=== PATIENT | female | born 1985 | race Two or more races ===

== ENCOUNTER 2017-10-05 13:06 | Emergency (ER) | payer OTHER, BC ==
[2017-10-05 13:15] VITALS: BP 137/83; PULSE 74; TEMP 97.9; BMI 28.5
[2017-10-05] MEDS ORDERED: MAG HYDROX/AL HYDROX/SIMETH 30 ML UNIT-DOSE CUP PO ONE (14:10)
[2017-10-05] MEDS ORDERED: ACETAMINOPHEN 1000 MG/100 ML VIAL (NON FORMULARY) IVPB ONE (14:23)
--- NOTE | 2017-10-05 14:36 | PDOC ---
History of Present Illness - General Chief Complaint: Pain Stated Complaint: ABD PAIN (PCP SENT) Time Seen by Provider: 10/05/17 13:50 - History of Present Illness Initial Comments: 10/05/17 14:34 Chief complaint: Right upper quadrant pain History of present illness: 31 years old significant past medical history presents emergency department with one-year history of intermittent right upper quadrant pain sometimes associated with meals. Patient had sought evaluation in the emergency department and was diagnosed with a gallstone. Symptoms are mild to moderate intermittent lasting half hour to an hour each time no associated fever or vomiting. Patient has not sought GI follow-up Past History - Past Medical History Allergies/Adverse Reactions: Allergies Allergy/AdvReac Type Severity Reaction Status Date / Time No Known Allergies Allergy Verified 10/05/17 13:12 Home Medications: Ambulatory Orders Docusate Sodium [Colace -] 100 mg PO BID #14 capsule 10/05/17 Ondansetron [Zofran *Odt*] 8 mg SL BID PRN #20 od.tablet 10/05/17 Oxycodone HCl/Acetaminophen [Percocet 5-325 mg Tablet] 1 tab PO Q6H PRN #12 tablet MDD 4 10/05/17 Cardiac Disorders: Yes (tachycardia) COPD: No - Suicide/Smoking/Psychosocial Hx Smoking Status: No Smoking History: Never smoked Number of Cigarettes Smoked Daily: 0 Information on smoking cessation initiated: No Hx Alcohol Use: No Drug/Substance Use Hx: No Substance Use Type: None Review of Systems - Review of Systems Comments:: 10/05/17 14:35 ROS: A complete review of 10 out of 10 review of systems is taken and is negative apart from what is previously mentioned below and in the HPI. *Physical Exam - Vital Signs Last Vital Signs Temp Pulse Resp BP Pulse Ox 97.9 F 74 18 137/83 100 10/05/17 13:12 10/05/17 13:12 10/05/17 13:12 10/05/17 13:12 10/05/17 13:12 - Physical Exam Comments: 10/05/17 14:35 Vitals: Triage Vital signs reviewed General Appearance: no acute distress, well nourished well developed, Head: Atraumatic, Eyes: Pupils equal reactive round, extraocular movement intact Cardiac: Regular rate and rhythym, no murmurs, no rubs, no gallops, Lungs: Clear to auscultation bilateral, good air movement bilaterally, Abdomen: Soft, non distended, normal bowel sounds, right upper quadrant tenderness to palpation Extremities: Full range of motion to all extremities, no cyanosis, clubbing, or edema Skin: Warm and dry, no rashes or lesions, no rash, no petechiae Psych: normal mood, normal affect ED Treatment Course - LABORATORY CBC & Chemistry Diagram: 10/05/17 15:36 10/05/17 15:36 - RADIOLOGY Radiology Studies Ordered: Category Date Time Status ABDOMEN US -LIMITED [US] Stat Ultrasound 10/05/17 14:08 Ordered Medical Decision Making - Medical Decision Making 10/05/17 17:02 Right upper quadrant pain we'll check labs ultrasound observe and reassess Dr. Rodriguez to follow up U/S reports and reasses *DC/Admit/Observation/Transfer Diagnosis at time of Disposition: Hyperglycemia Cholelithiasis Qualifiers: Cholelithiasis location: gallbladder Cholecystitis presence: without cholecystitis Biliary obstruction: without biliary obstruction Qualified Code(s) : K80.20 - Calculus of gallbladder without cholecystitis without obstruction Hyperlipemia Qualifiers: Hyperlipidemia type: unspecified Qualified Code(s): E78.5 - Hyperlipidemia, unspecified - Discharge Dispostion Disposition: HOME Condition at time of disposition: Stable - Prescriptions Prescriptions: Docusate Sodium [Colace -] 100 mg PO BID #14 capsule Ondansetron [Zofran *Odt*] 8 mg SL BID PRN #20 od.tablet PRN Reason: Nausea And/Or Vomiting Oxycodone HCl/Acetaminophen [Percocet 5-325 mg Tablet] 1 tab PO Q6H PRN #12 tablet MDD 4 PRN Reason: Pain Level 7 - 10 - Referrals Referrals: David Gee MD [Primary Care Provider] - - Patient Instructions Printed Discharge Instructions: High Triglycerides, DI for Gallstones, DI for Hyperglycemia -- Adult Additional Instructions: I spoke with Dr David Gee and he would like you to see him in the office this week either Thursday or Thursday Please avoid fatty and fried foods that will make your symptoms worsen Dr Gee has made arrangement for you to see a surgeon about your gallbladder Please coal picker your medications at your pharmacy Your glucose level was elevated in the lab work done today. You should have repeat chemistries done and follow up with your doctor Also your blood was very lipemic and this needs to be address by Dr Gee - Post Discharge Activity Forms/Work/School Notes: Back to Work
[2017-10-05 15:55] LABS: EOS % 2.3 % (0-4.5); HEMATOCRIT 36.8 % (32.4-45.2); HEMOGLOBIN 14.6 GM/dL (10.7-15.3); LYMPH % 27.4 % (8-40); MCH 34.9 pg (25.7-33.7); MCHC 39.6 g/dl (32.0-36.0); MEAN CELL VOLUME 88.3 fl (80-96); MEAN PLT VOLUME 8.6 fl (7.5-11.1); MONO % 5.2 % (3.8-10.2); NEUT % 64.1 % (42.8-82.8); PLATELET COUNT 343 K/MM3 (134-434); RBC 4.17 M/mm3 (3.60-5.2); RDW 12.9 % (11.6-15.6); WHITE BLOOD COUNT 10.6 K/mm3 (4.0-10.0)
[2017-10-05 16:13] LABS: ALBUMIN 3.6 g/dl (3.4-5.0); ANION GAP 5 (8-16); CHLORIDE 104 mmol/L (98-107); CO2 24 mmol/L (21-32); CREATININE 0.6 mg/dL (0.55-1.02); GLUCOSE,RANDOM 175 mg/dL (74-106); SODIUM 133 mmol/L (136-145)
[2017-10-05 16:29] LABS: POTASSIUM 4.3 mmol/L (3.5-5.1)
[2017-10-05] MEDS ORDERED: MAG HYDROX/AL HYDROX/SIMETH 30 ML UNIT-DOSE CUP ONE (16:33)
[2017-10-05 16:42] LABS: URINE APPEARANCE CLEAR; URINE BILIRUBIN NEGATIVE (<2.0 mg/dL); URINE BLOOD 2+ (NEGATIVE); URINE COLOR LTYELLOW; URINE GLUCOSE (UA) NEGATIVE (NEGATIVE); URINE KETONE NEGATIVE (NEGATIVE); URINE LEUK ESTERASE NEGATIVE (NEGATIVE); URINE NITRITE NEGATIVE (NEGATIVE); URINE PROTEIN NEGATIVE (NEGATIVE); URINE UROBILINOGEN NEGATIVE mg/dL (0.2-1.0)
[2017-10-05] MEDS ORDERED: FAMOTIDINE IV 20 MG/12 ML VIAL IVPUSH ONE (16:45)
[2017-10-05] MEDS ORDERED: ACETAMINOPHEN INJECTION 100 ML IVPB ONE (16:45)
[2017-10-05] MEDS ORDERED: FAMOTIDINE 20 MG/50 ML IVPB 20 MG/50 ML MG IVPB ONE (16:45)
[2017-10-05 16:47] LABS: EPI CELLS RARE /HPF (FEW); URINE BACTERIA RARE /hpf (NONE SEEN); URINE MUCUS RARE
--- NOTE | 2017-10-05 18:06 | PDOC ---
*Physical Exam - Vital Signs Last Vital Signs Temp Pulse Resp BP Pulse Ox 97.9 F 74 18 137/83 100 10/05/17 13:12 10/05/17 13:12 10/05/17 13:12 10/05/17 13:12 10/05/17 13:12 ED Treatment Course - LABORATORY CBC & Chemistry Diagram: 10/05/17 15:36 10/05/17 15:36 - ADDITIONAL ORDERS Additional order review: Laboratory Results 10/05/17 10/05/17 10/05/17 16:35 15:52 15:36 Sodium 133 L Potassium 4.3 Chloride 104 Carbon Dioxide 24 Anion Gap 5 L BUN Creatinine 0.6 Creat Clearance w eGFR > 60 Random Glucose 175 H Calcium Total Bilirubin AST ALT Alkaline Phosphatase Total Protein Albumin 3.6 Serum , Qual Urine Color Ltyellow Urine Appearance Clear Urine pH 5.0 Ur Specific Downey 1.027 Urine Protein Negative Urine Glucose (UA) Negative Urine Ketones Negative Urine Blood 2+ H Urine Nitrite Negative Urine Bilirubin Negative Urine Urobilinogen Negative Ur Leukocyte Esterase Negative Urine WBC (Auto) None Urine RBC (Auto) 24 Ur Epithelial Cells Rare Urine Bacteria Rare Urine Mucus Rare Urine HCG, Qual Negative 10/05/17 15:35 Sodium Potassium Chloride Carbon Dioxide Anion Gap BUN Creatinine Creat Clearance w eGFR Random Glucose Calcium Total Bilirubin AST ALT Alkaline Phosphatase Total Protein Albumin Serum , Qual Negative Urine Color Urine Appearance Urine pH Ur Specific Downey Urine Protein Urine Glucose (UA) Urine Ketones Urine Blood Urine Nitrite Urine Bilirubin Urine Urobilinogen Ur Leukocyte Esterase Urine WBC (Auto) Urine RBC (Auto) Ur Epithelial Cells Urine Bacteria Urine Mucus Urine HCG, Qual 10/05/17 15:36 RBC 4.17 MCV 88.3 MCHC 39.6 H RDW 12.9 MPV 8.6 Neutrophils % 64.1 Lymphocytes % 27.4 Monocytes % 5.2 Eosinophils % 2.3 Basophils % 1.0 - Medications Given in the ED: ED Medications Discontinued Medications Generic Name Dose Route Start Last Admin Trade Name Freq PRN Reason Stop Dose Admin Acetaminophen 1,000 mg 10/05/17 14:23 10/05/17 16:49 Ofirmev Injection - IVPB 10/05/17 14:24 1,000 mg ONCE ONE Administration Al Hydroxide/Mg Hydroxide 30 ml 10/05/17 14:10 10/05/17 16:41 Mylanta Oral Suspension - PO 10/05/17 14:11 30 ml ONCE ONE Administration Famotidine 20 mg in 12 mls @ 144 mls/hr 10/05/17 16:45 10/05/17 16:49 Pepcid 20 Mg/12 Ml Push IVPUSH 10/05/17 16:49 144 mls/hr ONCE ONE Administration Medical Decision Making - Medical Decision Making 10/05/17 18:05 blood too lipemic to run her LFTs abd US cholilithiasis but no evidence of cholecytitis 10/05/17 18:29 Speak to her PCP, Dr. David Gee and the plan is for her to follow-up in the office this Thursday. Her PCP is already made appointment with a surgeon to discuss outpatient cholecystectomy Patient will be given prescription for antiemetics and pain meds and she was instructed to avoid fatty or fried foods. I explained to her that she had a 1 cm stone in the neck of her was gallbladder and could have recurrent symptoms *DC/Admit/Observation/Transfer Diagnosis at time of Disposition: Hyperglycemia Cholelithiasis Qualifiers: Cholelithiasis location: gallbladder Cholecystitis presence: without cholecystitis Biliary obstruction: without biliary obstruction Qualified Code(s) : K80.20 - Calculus of gallbladder without cholecystitis without obstruction Hyperlipemia Qualifiers: Hyperlipidemia type: unspecified Qualified Code(s): E78.5 - Hyperlipidemia, unspecified - Discharge Dispostion Disposition: HOME Condition at time of disposition: Stable - Prescriptions Prescriptions: Docusate Sodium [Colace -] 100 mg PO BID #14 capsule Ondansetron [Zofran *Odt*] 8 mg SL BID PRN #20 od.tablet PRN Reason: Nausea And/Or Vomiting Oxycodone HCl/Acetaminophen [Percocet 5-325 mg Tablet] 1 tab PO Q6H PRN #12 tablet MDD 4 PRN Reason: Pain Level 7 - 10 - Referrals Referrals: David Gee MD [Primary Care Provider] - - Patient Instructions Printed Discharge Instructions: High Triglycerides, DI for Gallstones, DI for Hyperglycemia -- Adult Additional Instructions: I spoke with Dr David Gee and he would like you to see him in the office this week either Thursday or Thursday Please avoid fatty and fried foods that will make your symptoms worsen Dr Gee has made arrangement for you to see a surgeon about your gallbladder Please fruit or nut picker your medications at your pharmacy Your glucose level was elevated in the lab work done today. You should have repeat chemistries done and follow up with your doctor Also your blood was very lipemic and this needs to be address by Dr Gee - Post Discharge Activity
[2017-10-05] MEDS ORDERED: FAMOTIDINE IV 20 MG/12 ML VIAL IVPUSH SCH (22:00)
== END 2017-10-05 18:57 | disposition home or self-care (01) ==
LOC: JER 13:06
PROC: 3E033NZ Introduction of Analgesics, Hypnotics, Sedatives into Peripheral Vein, Percutaneous Approach (ICD-10-PCS; principal; 2017-10-05)
PROC: 3E033GC Introduction of Other Therapeutic Substance into Peripheral Vein, Percutaneous Approach (ICD-10-PCS; 2017-10-05)
DX: K80.20 Calculus of gallbladder without cholecystitis without obstruction (principal); R73.9 Hyperglycemia, unspecified
CPT/HCPCS: 36415; 76705-TC; 80053; 81003; 81015; 84703; 85025; 99283-25; J0131

== ENCOUNTER 2017-12-20 02:00 | Inpatient (IN) | payer OTHER, BC ==
--- NOTE | 2017-12-20 02:25 | PDOC ---
History of Present Illness - General History Source: Patient Exam Limitations: No Limitations - History of Present Illness Initial Comments: 12/20/17 04:39 Patient is a 31 year old female with a significant past medical history of who presents to the ED with complaints of right upper quadrant that began this morning. Patient reports eating broccoli rice and pasta at 10 pm before begging to experiencing increased right upper quadrant pain that she states woke her up from sleep, prompting her to come into the ED for further evaluation. She reports getting a ultrasound done earlier in the year, which showed her that she had a gallstone present, advising her to begin eating a low fat diet. Denies chest pain, Sob. Denies nausea, vomiting. Denies contact with sick individuals out of state travelling. Denies fevers, chills. Denies any other symptoms. Allergies: None Social history: Lives with children. No smoking. No alcohol. No illicit drugs. Surgical history: None PMD: Dr. David Gee <Naresh Wilson - Last Filed: 12/20/17 04:39> <Maya Pinedo - Last Filed: 12/20/17 21:32> - General Chief Complaint: Pain, Acute Stated Complaint: STOMACH PAIN Time Seen by Provider: 12/20/17 02:24 Past History <Naresh Wilson - Last Filed: 12/20/17 04:39> - Past Medical History Cardiac Disorders: Yes (tachycardia) COPD: No - Suicide/Smoking/Psychosocial Hx Smoking Status: No Smoking History: Never smoked Have you smoked in the past 12 months: No Number of Cigarettes Smoked Daily: 0 Information on smoking cessation initiated: No Hx Alcohol Use: No Drug/Substance Use Hx: No Substance Use Type: None <Maya Pinedo - Last Filed: 12/20/17 21:32> - Past Medical History Allergies/Adverse Reactions: Allergies Allergy/AdvReac Type Severity Reaction Status Date / Time No Known Allergies Allergy Verified 12/20/17 05:15 Home Medications: Ambulatory Orders NK [No Known Home Medication] 12/20/17 Review of Systems - Review of Systems Able to Perform ROS?: Yes Comments:: 12/20/17 04:39 GENERAL/CONSTITUTIONAL: No fever or chills. No weakness. HEAD, EYES, EARS, NOSE AND THROAT: No change in vision. No ear pain or discharge. No sore throat. CARDIOVASCULAR: No chest pain or shortness of breath. RESPIRATORY: No cough, wheezing, or hemoptysis. GASTROINTESTINAL: No nausea, vomiting, diarrhea or constipation. GENITOURINARY: No dysuria, frequency, or change in urination. MUSCULOSKELETAL: +Right upper quadrant pain. No joint or muscle swelling.. No neck or back pain. SKIN: No rash NEUROLOGIC: No headache, vertigo, loss of consciousness, or change in strength/ sensation. ENDOCRINE: No increased thirst. No abnormal weight change. HEMATOLOGIC/LYMPHATIC: No anemia, easy bleeding, or history of blood clots. ALLERGIC/IMMUNOLOGIC: No hives or skin allergy. <Naresh Wilson - Last Filed: 12/20/17 04:39> *Physical Exam - Vital Signs Last Vital Signs Temp Pulse Resp BP Pulse Ox 98.2 F 77 20 123/84 99 12/20/17 02:22 12/20/17 02:22 12/20/17 02:22 12/20/17 02:22 12/20/17 02:22 - Physical Exam Comments: 12/20/17 04:39 GENERAL: Awake, alert, and fully oriented, in no acute distress HEAD: No signs of trauma EYES: PERRLA, EOMI, sclera anicteric, conjunctiva clear ENT: Auricles normal inspection, hearing grossly normal, nares patent, oropharynx clear without exudates. Moist mucosa NECK: Normal ROM, supple, no lymphadenopathy, JVD, or masses LUNGS: Breath sounds equal, clear to auscultation bilaterally. No wheezes, and no crackles HEART: Regular rate and rhythm, normal S1 and S2, no murmurs, rubs or gallops ABDOMEN: +Right upper quadrant tenderness. Soft, normoactive bowel sounds. No guarding, no rebound. No masses EXTREMITIES: Normal range of motion, no edema. No clubbing or cyanosis. No cords, erythema, or tenderness NEUROLOGICAL: Cranial nerves II through XII grossly intact. Normal speech, normal gait SKIN: Warm, Dry, normal turgor, no rashes or lesions noted. <Naresh Wilson - Last Filed: 12/20/17 04:39> - Vital Signs Last Vital Signs Temp Pulse Resp BP Pulse Ox 98.2 F 77 20 123/84 99 12/20/17 02:22 12/20/17 02:22 12/20/17 02:22 12/20/17 02:22 12/20/17 02:22 <Maya Pinedo - Last Filed: 12/20/17 21:32> ED Treatment Course - LABORATORY CBC & Chemistry Diagram: 12/20/17 05:00 12/20/17 05:00 <Maya Pinedo - Last Filed: 12/20/17 21:32> Medical Decision Making - Medical Decision Making 12/20/17 04:37 Pt comes with RUQ and epigastric pain. States that she has a known GB stone. SHe ate dinner tonight pasta etc at 10PM; she also drank 2 beers. Pain woke her from sleep at midnight, Pt has no fever and she doesnt appear jaundiced. Pt has no PMHx. A1 Pt has no other complaints. 12/20/17 06:51 Pt will go for sono when the department opens this AM. <Maya Pinedo - Last Filed: 12/20/17 21:32> *DC/Admit/Observation/Transfer - Attestations Scribe Attestion: 12/20/17 04:40 Documentation prepared by Naresh Wilson, acting as medical research assistant for Maya Pinedo MD. <Naresh Wilson - Last Filed: 12/20/17 04:39> <Maya Pinedo - Last Filed: 12/20/17 21:32> Diagnosis at time of Disposition: Acute cholecystitis
[2017-12-20] MEDS ORDERED: ACETAMINOPHEN 1000 MG/100 ML VIAL (NON FORMULARY) IVPB ONE ×2 (03:51→14:31)
[2017-12-20] MEDS ORDERED: ACETAMINOPHEN INJECTION 100 ML IVPB ONE ×2 (04:56→14:34)
[2017-12-20 05:21] LABS: BASO % 0.4 % (0-2.0); EOS % 1.8 % (0-4.5); HEMATOCRIT 37.8 % (32.4-45.2); HEMOGLOBIN 12.5 GM/dL (10.7-15.3); LYMPH % 16.3 % (8-40); MCH 29.2 pg (25.7-33.7); MEAN CELL VOLUME 88.4 fl (80-96); MEAN PLT VOLUME 8.4 fl (7.5-11.1); MONO % 5.3 % (3.8-10.2); NEUT % 76.2 % (42.8-82.8); PLATELET COUNT 294 K/MM3 (134-434); RBC 4.28 M/mm3 (3.60-5.2); RDW 13.2 % (11.6-15.6); WHITE BLOOD COUNT 11.5 K/mm3 (4.0-10.0)
[2017-12-20 05:46] LABS: ALBUMIN 3.7 g/dl (3.4-5.0); ALK PHOS 57 U/L (45-117); AMYLASE 82 U/L (25-115); ANION GAP 10 (8-16); BILIRUBIN,TOTAL 0.2 mg/dL (0.2-1.0); BLOOD UREA NITROGEN 9 mg/dL (7-18); CALCIUM 8.8 mg/dL (8.5-10.1); CHLORIDE 106 mmol/L (98-107); CO2 23 mmol/L (21-32); CREATININE 0.7 mg/dL (0.55-1.02); GLUCOSE,RANDOM 112 mg/dL (74-106); LIPASE 126 U/L (73-393); POTASSIUM 4.5 mmol/L (3.5-5.1); SGOT/AST 40 U/L (15-37); SGPT/ALT 82 U/L (12-78); SODIUM 139 mmol/L (136-145); TOT PROT 7.1 g/dl (6.4-8.2)
--- NOTE | 2017-12-20 07:26 | PDOC ---
*Physical Exam - Vital Signs Last Vital Signs Temp Pulse Resp BP Pulse Ox 98.2 F 77 20 123/84 99 12/20/17 02:22 12/20/17 02:22 12/20/17 02:22 12/20/17 02:22 12/20/17 02:22 - Physical Exam Comments: 12/20/17 07:23 GENERAL: Awake, alert, and fully oriented, in no acute distress HEAD: No signs of trauma, normocephalic, atraumatic EYES: PERRLA, EOMI, sclera anicteric, conjunctiva clear ENT: Hearing grossly normal, nares patent, oropharynx clear without exudates. Moist mucosa NECK: Normal ROM, supple, no lymphadenopathy, JVD, or masses LUNGS: No distress, speaks full sentences, clear to auscultation bilaterally HEART: Regular rate and rhythm, normal S1 and S2, no murmurs, rubs or gallops, peripheral pulses normal and equal bilaterally. ABDOMEN: Soft, + RUQ ttp, nontender, normoactive bowel sounds. No guarding, no rebound. No masses EXTREMITIES : Normal inspection, Normal range of motion, no edema. No clubbing or cyanosis. SKIN: Warm, Dry, normal turgor, no rashes or lesions noted ED Treatment Course - LABORATORY CBC & Chemistry Diagram: 12/20/17 05:00 12/20/17 05:00 - ADDITIONAL ORDERS Additional order review: Laboratory Results 12/20/17 05:00 Sodium 139 Potassium 4.5 Chloride 106 Carbon Dioxide 23 Anion Gap 10 BUN 9 Creatinine 0.7 Creat Clearance w eGFR > 60 Random Glucose 112 H Calcium 8.8 Total Bilirubin 0.2 AST 40 H ALT 82 H Alkaline Phosphatase 57 Total Protein 7.1 Albumin 3.7 Total Amylase 82 Lipase 126 12/20/17 05:00 RBC 4.28 MCV 88.4 MCHC 33.0 RDW 13.2 MPV 8.4 Neutrophils % 76.2 Lymphocytes % 16.3 D Monocytes % 5.3 Eosinophils % 1.8 Basophils % 0.4 - Medications Given in the ED: ED Medications Discontinued Medications Generic Name Dose Route Start Last Admin Trade Name Freq PRN Reason Stop Dose Admin Acetaminophen 1,000 mg 12/20/17 03:51 12/20/17 05:00 Ofirmev Injection - IVPB 12/20/17 03:52 1,000 mg ONCE ONE Administration Medical Decision Making - Medical Decision Making 12/20/17 07:23 31 yo F with h/o cholelithiasis who p/w abdominal pain. Received signout from night team/Dr. Pinedo. Patient VSS, AF. AST/ALT 40/82, WBC 11.5. Pending RUQ U/S. R/o choleycystitis. ED Course: UA: 1+ Blood, 14 RBC Urine Preg: Neg RUQ U/S 12/20/17 10:01 RUQ U/S: Mild fatty infiltration of liver. Cholelithiasis with mild GB wall thickening 0.39. SIN sign seen by attending in ED. Early choleycysitits. 12/20/17 10:17 Attempted to call Surgery rn utilization management um Dr. Castanon at numbers provided [phone], [phone] , . Left message on answering machine. Attempted to call Radiologist who read report ( Martin Reyes ) [phone], [phone] x 2. 12/20/17 10:[address] David Boothe answering service. 12/20/17 10:[address] Boothe if surgery wants to manage with IV antibiotics, and, surgery, then patient to be admitted. 12/20/17 11:27 [facility] fish boning machine feeder contacted [phone]. Dr. Henderson accepts patient. Per. Dr. Boothe admit patient to surgery Dr. Henderson. *DC/Admit/Observation/Transfer Diagnosis at time of Disposition: Acute cholecystitis - Discharge Dispostion Decision to Admit order: Yes - Referrals Referrals: David Gee MD [Primary Care Provider] - Harjinder Bloom MD [Staff Physician] - - Patient Instructions Printed Discharge Instructions: DI for Gallstones Additional Instructions: Please return to the emergency department with any new or worsening symptoms or concerns. Please follow up with your primary care physician within 72 hours. Please follow up with general surgery within one week. - Post Discharge Activity - Attestations Physician Attestion: 12/20/17 07:25 I attest to the information provided in this note.
[2017-12-20 08:12] LABS: URINE APPEARANCE CLEAR; URINE BILIRUBIN NEGATIVE (<2.0 mg/dL); URINE COLOR YELLOW; URINE GLUCOSE (UA) NEGATIVE (NEGATIVE); URINE KETONE NEGATIVE (NEGATIVE); URINE LEUK ESTERASE NEGATIVE (NEGATIVE); URINE NITRITE NEGATIVE (NEGATIVE); URINE PROTEIN NEGATIVE (NEGATIVE); URINE UROBILINOGEN NEGATIVE mg/dL (0.2-1.0)
[2017-12-20 08:31] LABS: EPI CELLS FEW /HPF (FEW); URINE MUCUS RARE
[2017-12-20] MEDS ORDERED: ONDANSETRON 4 MG/2 ML VIAL IVPB ONE (10:25)
[2017-12-20] MEDS ORDERED: PIPERACILLIN/TAZOB 4.5 GM 4.5 GM in DEXTROSE 5%-WATER 100 ML IVPB ONE (10:28)
[2017-12-20] MEDS ORDERED: SODIUM CHLORIDE 1,000 ML IV STA (11:34)
[2017-12-20] MEDS ORDERED: PIPERACILLIN/TAZOB 4.5 GM 4.5 GM/100 ML BAG IVPB ONE ×2 (11:52)
[2017-12-20] MEDS ORDERED: ONDANSETRON 4 MG/2 ML VIAL ONE ×2 (11:52→11:57)
--- NOTE | 2017-12-20 14:45 | HP ---
Admitting History and Physical - Primary Care Physician PCP: David Gee S - Admission Chief Complaint: RUQ/epigastric pain, n/v History of Present Illness: 31yo F with h/o hypertriglyceridemia (was on Vascepa ~1.5 months, but repeat labs showed normal level), tachycardia (was seen here about 7 yrs ago but did not require intervention), known cholelithiasis from ER visit end of September (had seen Dr. Bloom in office to discuss possible cholecystectomy but had not pursued yet), presented to ER with recurrence of RUQ/epigastric pain starting several days ago, which initially resolved but returned overnight about midnight, associated with N/V, so she came to ER. Last po was dinner last night ([place], shrimp with noodles). She had been on a no-fat diet for her triglycerides for a while, but has recently not been so good about following low-fat diet. The pain has subsided a bit in the ER, after IV Tylenol and fluids, but is starting to come back. She is afebrile, with wbc 11.5, LFTs normal except very slightly elevated AST/ ALT, normal lipase. US shows 1.6cm stone in neck of gallbladder and possibly another smaller stone or polyp in fundus. 09/23 US also showed stone in gallbladder neck. Currently, wall is borderline thickened, no pericholecystic fluid, no ductal dilation. ER has given fluids and started Zosyn for cholecystitis. History Source: Patient Limitations to Obtaining History: No Limitations - Past Medical History Cardiovascular: Yes: Hyperlipdemia (high triglycerides - last count was much better), Other (tachycardia about 7 years ago) Hepatobiliary: Yes: Cholelithiasis Reproductive: No: Postmenopausal ...LMP: 11/28/17 ...: No ...: 2 ...Para: 1 - Past Surgical History Additional Past Surgical History: TOP - Smoking History Smoking history: Never smoked Have you smoked in the past 12 months: No - Alcohol/Substance Use Hx Alcohol Use: Yes (social) History of Substance Use: reports: None - Social History Usual Living Arrangement: Yes: With Spouse ADL: Independent Occupation: works in [employer] office Home Medications - Allergies Allergies/Adverse Reactions: Allergies Allergy/AdvReac Type Severity Reaction Status Date / Time No Known Allergies Allergy Verified 07/15/18 05:15 - Home Medications Home Medications: Ambulatory Orders NK [No Known Home Medication] 12/20/17 Family Disease History - Family Disease History Family Disease History: Other: Mother (gallbladder out), Sister (gallbladder out ) Other Family History: aunt with DM Review of Systems - Review of Systems Constitutional: denies: Chills, Fever, Loss of Appetite Eyes: denies: Blurred Vision, Recent Change in Vision HENT: denies: Difficult Swallowing, Nasal Congestion, Throat Pain Neck: denies: Swollen Glands, Tenderness Cardiovascular: denies: Chest Pain, Palpitations Respiratory: denies: Cough, SOB Gastrointestinal: reports: Abdominal Pain (with hpi), Nausea (with hpi), Vomiting (with hpi). denies: Constipation, Diarrhea Genitourinary: denies: Burning, Dysuria Breasts: reports: No Symptoms Reported Musculoskeletal: reports: Back Pain (abdominal pain radiates around to back). denies: Joint Pain, Muscle Pain Integumentary: denies: Change in Color, Rash Neurological: denies: Dizziness, Headache, Unsteady Gait Psychiatric: denies: Anxiety, Depression Physical Examination Vital Signs: Vital Signs Temperature 98.2 F 12/20/17 14:00 Pulse Rate 68 12/20/17 14:00 Respiratory Rate 16 12/20/17 14:00 Blood Pressure 110/70 12/20/17 14:00 O2 Sat by Pulse Oximetry (%) 99 12/20/17 14:00 Constitutional: Yes: Well Nourished, No Distress, Calm Eyes: Yes: Conjunctiva Clear HENT: Yes: Atraumatic, Normocephalic Neck: Yes: Supple, Trachea Midline Cardiovascular: Yes: Regular Rate and Rhythm. No: Tachycardia, Murmur Respiratory: Yes: Regular, CTA Bilaterally Gastrointestinal: Yes: Normal Bowel Sounds, Soft, Abdomen, Obese, Tenderness ( minimal RUQ to deep palpation only), Tenderness, Epigastrium (minimal to deep palpation only). No: Tenderness, Rebound ...Rectal Exam: Yes: Deferred Renal/: No: CVA Tenderness - Left, CVA Tenderness - Right Musculoskeletal: No: Joint Stiffness, Joint Swelling Extremities: No: Cool, Cyanosis Edema: No Peripheral Pulses WNL: Yes Integumentary: Yes: Body Piercing (umbilical - old infraumb site - not used for years; current supraumb jewelry). No: Jaundice, Rash Neurological: Yes: Alert, Oriented. No: Unsteady Gait Psychiatric: Yes: Alert, Oriented Labs: CBC, BMP 12/20/17 05:00 12/20/17 05:00 CMP Sodium 139 mmol/L (136-145) 12/20/17 05:00 Potassium 4.5 mmol/L (3.5-5.1) 12/20/17 05:00 Chloride 106 mmol/L (98-107) 12/20/17 05:00 Carbon Dioxide 23 mmol/L (21-32) 12/20/17 05:00 Anion Gap 10 (8-16) 12/20/17 05:00 BUN 9 mg/dL (7-18) 12/20/17 05:00 Creatinine 0.7 mg/dL (0.55-1.02) 12/20/17 05:00 Creat Clearance w eGFR > 60 (>60) 12/20/17 05:00 Random Glucose 112 mg/dL (74-106) H 12/20/17 05:00 Calcium 8.8 mg/dL (8.5-10.1) 12/20/17 05:00 Total Bilirubin 0.2 mg/dL (0.2-1.0) 12/20/17 05:00 AST 40 U/L (15-37) H 12/20/17 05:00 ALT 82 U/L (12-78) H 12/20/17 05:00 Alkaline Phosphatase 57 U/L (45-117) 12/20/17 05:00 Total Protein 7.1 g/dl (6.4-8.2) 12/20/17 05:00 Albumin 3.7 g/dl (3.4-5.0) 12/20/17 05:00 Total Amylase 82 U/L (25-115) 12/20/17 05:00 Lipase 126 U/L (73-393) 12/20/17 05:00 AST/ALT slightly over normal mild wbc elevation Urine Test Results Urine Color Yellow 12/20/17 07:44 Urine Appearance Clear 12/20/17 07:44 Urine pH 6.0 (5.0-8.0) 12/20/17 07:44 Ur Specific [place] 1.028 (1.001-1.035) 12/20/17 07:44 Urine Protein Negative (NEGATIVE) 12/20/17 07:44 Urine Glucose (UA) Negative (NEGATIVE) 12/20/17 07:44 Urine Ketones Negative (NEGATIVE) 12/20/17 07:44 Urine Blood 1+ (NEGATIVE) H 12/20/17 07:44 Urine Nitrite Negative (NEGATIVE) 12/20/17 07:44 Urine Bilirubin Negative (<2.0 mg/dL) 12/20/17 07:44 Ur Leukocyte Esterase Negative (NEGATIVE) 12/20/17 07:44 Ur Epithelial Cells Few /HPF (FEW) 12/20/17 07:44 Urine Mucus Rare 12/20/17 07:44 Imaging - Results Ultrasound: Report Reviewed, Image Reviewed EKG: Pending Problem List - Problems (1) Calculus of gallbladder with acute cholecystitis without obstruction Assessment/Plan: admit to surgery for acute cholecystitis, likely impacted stone NPO/IVF until postop pain meds prn - nonnarcotics as able DVT prophylaxis IV antibiotics, ID consulted to continue trend labs coags/T&S in am checking EKG given h/o tachycardia in past Discussed with patient risks, benefits and alternatives of laparoscopic possible open cholecystectomy, including but not limited to bleeding, infection , injury to adjacent structures, bile leak or ductal injury, intraabdominal abscess, hernia, need for further procedures, ; alternatives include antibiotics, delayed or no surgery - risks of this include cholangitis, recurrence of biliary colic, cholecystitis, pancreatitis, and attendant consequences. Patient agreeable to proceed with operation. Informed consent signed for same. If labs in am do not suggest choledocholithiasis, will take to OR tomorrow for surgery. Discussed potential need for MRCP, GI consultation depending on lab trend. Pt anticipated to spend at least 2 midnights in hospital. Code(s): K80.00 - CALCULUS OF GALLBLADDER W ACUTE CHOLECYST W/O OBSTRUCTION (2) RUQ pain Code(s): R10.11 - RIGHT UPPER QUADRANT PAIN (3) Nausea and vomiting Code(s): R11.2 - NAUSEA WITH VOMITING, UNSPECIFIED Qualifiers: Vomiting type: unspecified Vomiting Intractability: non-intractable Qualified Code(s): R11.2 - Nausea with vomiting, unspecified (4) Hypertriglyceridemia Code(s): E78.1 - PURE HYPERGLYCERIDEMIA
[2017-12-20] MEDS ORDERED: SODIUM CHLORIDE 1,000 ML IV SCH (15:15)
[2017-12-20 15:16] VITALS: BMI 34.4
[2017-12-20] MEDS ORDERED: ONDANSETRON 4 MG/2 ML VIAL IVPUSH PRN (15:38)
[2017-12-20] MEDS ORDERED: ACETAMINOPHEN 1000 MG/100 ML VIAL (NON FORMULARY) IVPB PRN (20:00)
[2017-12-20] MEDS ORDERED: PIPERACILLIN/TAZOBACTAM 3.375 GM VIAL IVPB ONE (21:35)
[2017-12-20] MEDS ORDERED: DEXTROSE 5%-WATER - 50 ML IVPB ONE (21:35)
[2017-12-20] MEDS: PIPERACILLIN/TAZOB 3.375 GM 3.375 GM in DEXTROSE 5%-WATER - 50 ML IVPB SCH (22:07)
[2017-12-21] MEDS ORDERED: DEXTROSE 5%-WATER - 50 ML IVPB ONE ×3 (01:10→17:09)
[2017-12-21] MEDS ORDERED: PIPERACILLIN/TAZOBACTAM 3.375 GM VIAL IVPB ONE ×3 (01:10→17:09)
[2017-12-21] MEDS: PIPERACILLIN/TAZOB 3.375 GM 3.375 GM in DEXTROSE 5%-WATER - 50 ML IVPB SCH ×3 (04:00→17:24)
[2017-12-21 08:17] LABS: BASO % 0.6 % (0-2.0); EOS % 3.8 % (0-4.5); HEMOGLOBIN 11.3 GM/dL (10.7-15.3); MCH 29.5 pg (25.7-33.7); MCHC 33.3 g/dl (32.0-36.0); MEAN CELL VOLUME 88.7 fl (80-96); MEAN PLT VOLUME 8.3 fl (7.5-11.1); MONO % 6.1 % (3.8-10.2); NEUT % 56.5 % (42.8-82.8); PLATELET COUNT 246 K/MM3 (134-434); RBC 3.83 M/mm3 (3.60-5.2); RDW 12.8 % (11.6-15.6); WHITE BLOOD COUNT 7.7 K/mm3 (4.0-10.0)
[2017-12-21 08:34] LABS: INR 1.12 (0.82-1.09); PROTHROMBIN TIME (PATIENT) 12.6 SEC (9.7-13.0)
[2017-12-21 09:20] LABS: ALBUMIN 3.1 g/dl (3.4-5.0); ANION GAP 8 (8-16); BLOOD UREA NITROGEN 7 mg/dL (7-18); CHLORIDE 106 mmol/L (98-107); CO2 24 mmol/L (21-32); CREATININE 0.6 mg/dL (0.55-1.02); GLUCOSE,RANDOM 88 mg/dL (74-106); LIPASE 82 U/L (73-393); SGOT/AST 32 U/L (15-37); SGPT/ALT 63 U/L (12-78); SODIUM 138 mmol/L (136-145); TOT PROT 5.9 g/dl (6.4-8.2)
[2017-12-21 09:21] LABS: ALK PHOS 51 U/L (45-117); BILIRUBIN,TOTAL 0.3 mg/dL (0.2-1.0)
--- NOTE | 2017-12-21 11:22 | CON.ID ---
Consult Consult Specialty:: infectious diseases Referred by:: Reason for Consultation:: cholecystitis - History of Present Illness Chief Complaint: abd pain ruq History of Present Illness: 31yo F with h/o hypertriglyceridemia with known cholelithiasis from ER visit end of September , patient came to the hospital again wiht the same symptoms which was intermittent her last set of symptoms were associated with nausea and vomiting and patient came to the [facility] and was worked up. patients US shows 1.6cm stone in neck of gallbladder and possibly another smaller stone or polyp in fundus. 09/23 US also showed stone in gallbladder neck. Currently, wall is borderline thickened, no pericholecystic fluid, no ductal dilation. ER has given fluids and started Zosyn for cholecystitis. surgery has seen the patient and the plan is to do cholecystectomy on the patient currently she has minimal pain and she is stable - History Source History Provided By: Patient Limitations to Obtaining History: No Limitations - Past Medical History Cardio/Vascular: Yes: Hyperlipdemia (high triglycerides - last count was much better), Other (tachycardia about 7 years ago) Hepatobiliary: Yes: Cholelithiasis ...LMP: 11/28/17 ...: No - Alcohol/Substance Use Hx Alcohol Use: No History of Substance Use: reports: None - Smoking History Smoking history: Never smoked Have you smoked in the past 12 months: No Aproximately how many cigarettes per day: 0 - Social History ADL: Independent Occupation: works in [employer] office Home Medications - Allergies Allergies/Adverse Reactions: Allergies Allergy/AdvReac Type Severity Reaction Status Date / Time No Known Allergies Allergy Verified 12/20/17 05:15 - Home Medications Home Medications: Ambulatory Orders Acetaminophen [Tylenol .Regular Strength -] 650 mg PO Q6H tablet 12/22/17 Ibuprofen [Motrin -] 600 mg PO Q6H tablet 12/22/17 Family Disease History - Family Disease History Family Disease History: Other: Mother (gallbladder out), Sister (gallbladder out ) Other Family History: aunt with DM Review of Systems - Review of Systems Constitutional: reports: No Symptoms Eyes: reports: No Symptoms HENT: reports: No Symptoms Neck: reports: No Symptoms Cardiovascular: reports: No Symptoms Respiratory: reports: No Symptoms Gastrointestinal: reports: Abdominal Pain, Nausea, Vomiting Genitourinary: reports: No Symptoms Musculoskeletal: reports: No Symptoms Integumentary: reports: No Symptoms Neurological: reports: No Symptoms Endocrine: reports: No Symptoms Hematology/Lymphatic: reports: No Symptoms Psychiatric: reports: No Symptoms Physical Exam Vital Signs: Vital Signs Temperature 98.1 F 12/21/17 06:33 Pulse Rate 71 12/21/17 06:33 Respiratory Rate 20 12/21/17 06:33 Blood Pressure 108/67 12/21/17 06:33 O2 Sat by Pulse Oximetry (%) 98 12/20/17 21:00 Constitutional: Yes: Well Nourished, No Distress, Calm, Obese Eyes: Yes: Conjunctiva Clear Cardiovascular: Yes: Regular Rate and Rhythm Respiratory: Yes: Regular, CTA Bilaterally Gastrointestinal: Yes: Normal Bowel Sounds, Soft, Tenderness (ruq minimal) Musculoskeletal: Yes: WNL Extremities: Yes: WNL Neurological: Yes: Alert, Oriented Psychiatric: Yes: Alert, Oriented Labs: CBC, BMP 12/21/17 06:20 12/21/17 09:00 Imaging - Results Ultrasound: Report Reviewed, Image Reviewed Assessment/Plan Problem List - Problems (1) Calculus of gallbladder with acute cholecystitis without obstruction Code(s): K80.00 - CALCULUS OF GALLBLADDER W ACUTE CHOLECYST W/O OBSTRUCTION (2) RUQ pain Code(s): R10.11 - RIGHT UPPER QUADRANT PAIN (3) Nausea and vomiting Code(s): R11.2 - NAUSEA WITH VOMITING, UNSPECIFIED Qualifiers: Vomiting type: unspecified Vomiting Intractability: non-intractable Qualified Code(s): R11.2 - Nausea with vomiting, unspecified (4) Hypertriglyceridemia Code(s): E78.1 - PURE HYPERGLYCERIDEMIA patient with the above symptoms known history of choleycystitis from some time plan will start patient on zosyn empirically rest continue current mgmt
--- NOTE | 2017-12-21 13:29 | EKG ---
Test Reason : Blood Pressure : / mmHG Vent. Rate : 064 BPM Atrial Rate : 064 BPM P-R Int : 170 ms QRS Dur : 084 ms QT Int : 410 ms P-R-T Axes : 048 044 022 degrees QTc Int : 422 ms NORMAL SINUS RHYTHM NORMAL ECG WHEN COMPARED WITH ECG OF 21-SEP-2009 14:17, VENT. RATE HAS DECREASED BY 53 BPM Confirmed by ROBERT NAVA MD ([id number]) on 12/21/2017 1:29:16 PM Referred By: Confirmed By:ROBERT NAVA MD
[2017-12-21] MEDS ORDERED: ACETAMINOPHEN 325 MG TABLET (FP) PO PRN (17:35)
[2017-12-21] MEDS ORDERED: SODIUM CHLORIDE 1,000 ML IV SCH (17:35)
--- NOTE | 2017-12-21 17:49 | PN ---
Progress Note, Physician History of Present Illness: Pt with acute cholecystitis and impacted stone, awaiting OR. Labs ok this am. Pain better - no meds today. Ambulating and voiding ok. Pt is hungry. Seen and examined in bed with at bedside. No complaints. - Current Medication List Current Medications: Active Medications Acetaminophen (Tylenol -) 650 mg PO Q6H PRN PRN Reason: Pain Level 4 - 10 Piperacillin Sod/Tazobactam (Sod 3.375 gm/ Dextrose) 50 mls @ 100 mls/hr IVPB Q8H-IV WILLIS; Protocol Last Admin: 12/21/17 17:24 Dose: 100 mls/hr Sodium Chloride (Normal Saline -) 1,000 mls @ 83 mls/hr IV ASDIR WILLIS Ondansetron HCl (Zofran Injection) 4 mg IVPUSH Q6H PRN PRN Reason: NAUSEA - Objective Vital Signs: Vital Signs Temperature 99.4 F 12/21/17 17:17 Pulse Rate 70 12/21/17 17:17 Respiratory Rate 18 12/21/17 17:17 Blood Pressure 104/64 12/21/17 17:17 O2 Sat by Pulse Oximetry (%) 98 12/21/17 09:00 Vital Signs Period Temp Pulse Resp BP Sys/[place] Pulse Ox Last 24 Hr 98.1 F-99.5 F 59-71 18-20 100-108/64-78 98-98 Constitutional: Yes: Well Nourished, No Distress, Calm Eyes: Yes: Conjunctiva Clear, EOM Intact. No: Sclera Icterus HENT: Yes: Atraumatic, Normocephalic Cardiovascular: Yes: Regular Rate and Rhythm. No: Murmur Respiratory: Yes: Regular, CTA Bilaterally Gastrointestinal: Yes: Soft, Hypoactive Bowel Sounds, Tenderness (mild RUQ/ epigastric in am, less now but present on deep palpation). No: Distention ...Rectal Exam: Yes: Deferred Musculoskeletal: No: Joint Stiffness, Joint Swelling Extremities: No: Cool, Cyanosis Integumentary: No: Jaundice, Rash Neurological: Yes: Alert, Oriented Labs: CBC, BMP 12/21/17 06:20 12/21/17 09:00 INR, PTT INR 1.12 (0.82-1.09) 12/21/17 06:20 CMP Sodium 138 mmol/L (136-145) 12/21/17 09:00 Potassium 4.0 mmol/L (3.5-5.1) 12/21/17 09:00 Chloride 106 mmol/L (98-107) 12/21/17 09:00 Carbon Dioxide 24 mmol/L (21-32) 12/21/17 09:00 Anion Gap 8 (8-16) 12/21/17 09:00 BUN 7 mg/dL (7-18) 12/21/17 09:00 Creatinine 0.6 mg/dL (0.55-1.02) 12/21/17 09:00 Creat Clearance w eGFR > 60 (>60) 12/21/17 09:00 Random Glucose 88 mg/dL (74-106) 12/21/17 09:00 Calcium 8.0 mg/dL (8.5-10.1) L 12/21/17 09:00 Total Bilirubin 0.3 mg/dL (0.2-1.0) 12/21/17 09:00 AST 32 U/L (15-37) 12/21/17 09:00 ALT 63 U/L (12-78) 12/21/17 09:00 Alkaline Phosphatase 51 U/L (45-117) 12/21/17 09:00 Total Protein 5.9 g/dl (6.4-8.2) L 12/21/17 09:00 Albumin 3.1 g/dl (3.4-5.0) L 12/21/17 09:00 Total Amylase 82 U/L (25-115) 12/20/17 05:00 Lipase 82 U/L (73-393) 12/21/17 09:00 Problem List - Problems (1) Calculus of gallbladder with acute cholecystitis without obstruction Assessment/Plan: OR unable to accommodate time before late this evening on schedule today rescheduled for 0730 clear liquids tonight NPO after midnight pain meds prn - nonnarcotics as able DVT prophylaxis continue IV antibiotics, ID saw pt EKG NSR at normal rate For lap poss open cholecystectomy in am, anticipate possible d/c home later in day if ambulating, tolerating diet, pain controlled with po meds Code(s): K80.00 - CALCULUS OF GALLBLADDER W ACUTE CHOLECYST W/O OBSTRUCTION (2) RUQ pain Assessment/Plan: improved Code(s): R10.11 - RIGHT UPPER QUADRANT PAIN (3) Nausea and vomiting Assessment/Plan: resolved Code(s): R11.2 - NAUSEA WITH VOMITING, UNSPECIFIED Qualifiers: Vomiting type: unspecified Vomiting Intractability: non-intractable Qualified Code(s): R11.2 - Nausea with vomiting, unspecified (4) Hypertriglyceridemia Code(s): E78.1 - PURE HYPERGLYCERIDEMIA
[2017-12-22] MEDS ORDERED: PIPERACILLIN/TAZOBACTAM 3.375 GM VIAL IVPB ONE ×3 (01:44→17:19)
[2017-12-22] MEDS ORDERED: DEXTROSE 5%-WATER - 50 ML IVPB ONE ×3 (01:44→17:19)
[2017-12-22] MEDS: PIPERACILLIN/TAZOB 3.375 GM 3.375 GM in DEXTROSE 5%-WATER - 50 ML IVPB SCH (01:48)
[2017-12-22] MEDS ORDERED: MIDAZOLAM HCL 2 MG/2 ML SINGLE DOSE VIAL ONE (07:23)
[2017-12-22] MEDS ORDERED: DEXAMETHASONE SOD PHOSPHATE 4 MG/1 ML VIAL ONE ×2 (07:39→08:05)
[2017-12-22] MEDS ORDERED: PROPOFOL 20 ML ONE (07:40)
[2017-12-22] MEDS ORDERED: ROCURONIUM BROMIDE 50 MG/5 ML VIAL ONE (07:41)
[2017-12-22] MEDS ORDERED: GLYCOPYRROLATE 0.2 MG/1 ML VIAL ONE (08:13)
[2017-12-22] MEDS ORDERED: BUPIVACAINE HCL/PF (5 MG/ML) 30 ML VIAL IJ ONE ×2 (08:44)
[2017-12-22] MEDS ORDERED: IBUPROFEN 600 MG TABLET (FP) PO SCH (09:00)
--- NOTE | 2017-12-22 09:06 | OP ---
Operative Note - Note: Operative Date: 12/22/17 Pre-Operative Diagnosis: acute cholecystitis Operation: laparoscopic cholecystectomy Findings: mildly edematous gallbladder, critical view identified; moderate-sized stone palpable Post-Operative Diagnosis: Same as Pre-op Surgeon: Chip Henderson Quarter Supervisor: Sun Castro (dilshad/[place] MS3) Anesthesiologist/GUSSET FOLDER: Surinder Cadena Anesthesia: General, Local (20ml 0.5% marcaine) Specimens Removed: gallbladder to pathology Estimated Blood Loss (mls): 5 Fluid Volume Replaced (mls): 800 (crystalloid) Operative Report Dictated: Yes
[2017-12-22] MEDS ORDERED: IBUPROFEN 800 MG/8 ML IJ IVPB ONE ×2 (09:07→09:15)
[2017-12-22] MEDS ORDERED: oxyCODONE HCL 5 MG TABLET PO PRN (09:12)
[2017-12-22] MEDS ORDERED: LACTATED RINGERS SOLUTION 1,000 ML/1,000 ML INFUS.BAG IV SCH ×2 (09:15→09:51)
[2017-12-22] MEDS ORDERED: ONDANSETRON 4 MG/2 ML VIAL IVPUSH PRN (09:51)
[2017-12-22] MEDS ORDERED: PIPERACILLIN/TAZOB 3.375 GM 3.375 GM in DEXTROSE 5%-WATER - 50 ML IVPB SCH ×2 (10:00→18:00)
--- NOTE | 2017-12-22 11:12 | SURG ---
Surgery Frame Table Operator Helper Note Frame Table Operator Helper: Sun Castro PA-C Date of Service: 12/22/17 Diagnosis: laparoscopic cholecystectomy Procedure: mildly edematous gallbladder, critical view identified; moderate-sized stone palpable I was present for the entirety of the operative procedure. For further detail, please refer to operative report. Visit type - Case Type Case Type: ED Admission - Emergency Emergency Visit: Yes ED Registration Date: 12/20/17 Care time: The patient presented to the Emergency Department on the above date and was hospitalized for further evaluation of their emergent condition. - New patient This patient is new to me today: Yes Date on this admission: 12/22/17
[2017-12-22] MEDS: ACETAMINOPHEN 325 MG TABLET (FP) PO SCH ×3 (11:40→22:59)
[2017-12-22] MEDS ORDERED: ACETAMINOPHEN 325 MG TABLET (FP) PO SCH (12:00)
--- NOTE | 2017-12-22 13:11 | PN ---
Progress Note, Physician History of Present Illness: patient stable c/o of pain post op - Current Medication List Current Medications: Active Medications Acetaminophen (Tylenol -) 650 mg PO Q6H WILLIS Last Admin: 12/22/17 11:40 Dose: 650 mg Lactated Ringer's (Lactated Ringers Solution) 1,000 ml in 1,000 mls @ 100 mls/ hr IV ASDIR WILLIS Piperacillin Sod/Tazobactam (Sod 3.375 gm/ Dextrose) 50 mls @ 100 mls/hr IVPB Q8H-IV WILLIS; Protocol Last Admin: 12/22/17 11:40 Dose: 100 mls/hr Ibuprofen (Motrin -) 600 mg PO Q6H [facility]IS Ondansetron HCl (Zofran Injection) 4 mg IVPUSH Q6H PRN PRN Reason: NAUSEA Oxycodone HCl (Roxicodone -) 5 mg PO Q6H PRN PRN Reason: Pain Level 7 - 10 BREAKTHROUGH - Objective Vital Signs: Vital Signs Temperature 98.0 F 12/22/17 09:00 Pulse Rate 72 12/22/17 09:30 Respiratory Rate 16 12/22/17 09:30 Blood Pressure 126/77 12/22/17 09:30 O2 Sat by Pulse Oximetry (%) 100 12/22/17 09:30 Constitutional: Yes: No Distress, Calm Cardiovascular: Yes: Regular Rate and Rhythm Respiratory: Yes: Regular, CTA Bilaterally Gastrointestinal: Yes: Normal Bowel Sounds, Soft Musculoskeletal: Yes: WNL Extremities: Yes: WNL Wound/Incision: Yes: Clean/Dry Neurological: Yes: Alert, Oriented Psychiatric: Yes: Alert, Oriented Labs: CBC, BMP 12/21/17 06:20 12/21/17 09:00 INR, PTT INR 1.12 (0.82-1.09) 12/21/17 06:20 Assessment/Plan Problem List - Problems (1) Calculus of gallbladder with acute cholecystitis without obstruction Code(s): K80.00 - CALCULUS OF GALLBLADDER W ACUTE CHOLECYST W/O OBSTRUCTION (2) RUQ pain Code(s): R10.11 - RIGHT UPPER QUADRANT PAIN (3) Nausea and vomiting Code(s): R11.2 - NAUSEA WITH VOMITING, UNSPECIFIED Qualifiers: Vomiting type: unspecified Vomiting Intractability: non-intractable Qualified Code(s): R11.2 - Nausea with vomiting, unspecified (4) Hypertriglyceridemia Code(s): E78.1 - PURE HYPERGLYCERIDEMIA patient with the above symptoms known history of choleycystitis from some time plan will stop zosyn continue to monitor will d/w surgery rest as per the team
[2017-12-22] MEDS: IBUPROFEN 800 MG/8 ML IJ IVPB ONE ×2 (13:47→13:53)
[2017-12-22] MEDS: oxyCODONE HCL 5 MG TABLET PO PRN ×2 (14:13→23:00)
[2017-12-22] MEDS: IBUPROFEN 600 MG TABLET (FP) PO SCH ×2 (15:30→22:00)
--- NOTE | 2017-12-22 21:46 | OP ---
DATE OF OPERATION: 12/22/2017 PREOPERATIVE DIAGNOSIS: Acute cholecystitis. POSTOPERATIVE DIAGNOSIS: Acute cholecystitis. PROCEDURE: Laparoscopic cholecystectomy. SURGEON: Chip Henderson MD PLY BANDER: MAYRA Foreman, with Daniel Koenig MS-3 ANESTHESIA: General endotracheal and local 20 mL of 0.5% Marcaine. ESTIMATED BLOOD LOSS: 5 mL. FLUIDS: 800 mL of crystalloid. SPECIMEN: Gallbladder to Pathology. FINDINGS: Mildly edematous gallbladder, the critical view identified, and a moderate size stone was palpable inside the gallbladder. DISPOSITION: Stable and extubated to PACU. INDICATIONS FOR PROCEDURE: The patient is a 31-year-old obese female with a history of hypertriglyceridemia, apparently since previous medication, now controlled, and previous episode of tachycardia a number of years ago, with known cholelithiasis diagnosed several months ago, with symptoms of biliary colic, was admitted through the emergency room with similar pains starting again a couple of nights ago but increasing significantly since midnight right before coming to the ER. She was afebrile with a white count of 11.5 and LFTs were normal along with lipase, except for very slightly elevated AST and ALT, which were normal the next morning. Ultrasound showed a 1.6 cm stone in the neck of the gallbladder. A similar stone was also seen on ultrasound at the end of September. The wall was borderline thickened, with no ductal dilation or pericholecystic fluid, but given her white count, she was admitted to surgery and treated for acute cholecystitis with impacted stone. Zosyn was given as perioperative antibiotics, and she is now brought to the OR after risks, benefits, and alternatives of laparoscopic, possible open cholecystectomy, had been discussed, including but not limited to bleeding, infection, injury to adjacent structures, bile leak or ductal injury, intraabdominal abscess, hernia, need for further procedures, and . Alternatives inclusive of antibiotics, delayed or no surgery, with attendant risks of cholangitis, recurrence of biliary colic, cholecystitis, pancreatitis, and consequences thereof were also discussed. The patient had signed informed consent and is now brought to the OR for this procedure. OPERATIVE TECHNIQUE: The patient was brought to the operating room and laid supine on the operating table. Sequential compression devices were applied to bilateral lower extremities, and as her scheduled Zosyn of more than 3 doses already given, was not currently due. In the OR, no add antibiotics were given immediately prior to surgery. After induction and intubation by Anesthesia, the patient's abdomen was prepped and draped in sterile fashion. The patient had an old infraumbilical piercing site, which had not been used for several years, and an active supraumbilical piercing site, thus a small curvilinear incision was made between the old piercing site and the umbilicus itself below the navel, made with a scalpel and carried into subcutaneous tissue using electrocautery until the abdominal wall fascia was identified. Army-Wheelwright retractors were used to visualize the midline fascia infraumbilically, which was then scored with electrocautery, grasped with Niecy clamps and elevated. The fascial opening was made slightly larger with electrocautery and the peritoneum entered with the tip of a clamp. A fingertip was then inserted to ensure entry into the abdominal cavity and to the absence of any underlying adhesions. A stay suture of 0 Vicryl was then placed in the fascia in [id number] fashion for later closure, and a Cristian trocar introduced directly into the abdominal cavity and secured in place with the balloon. The abdomen was insufflated with carbon dioxide. The patient was placed in reverse Trendelenburg position with the right side planed somewhat upward. An additional 5-mm port was placed in the subxiphoid area under direct vision, through which a graspers was introduced and used to elevate the edge of the liver, revealing the gallbladder, which was elongated and only mildly inflamed. There were no overlying adhesions. Two additional 5-mm ports were then placed in the right upper quadrant, also under direct vision, through which graspers were introduced in the lateral side to grasp the fundus of the gallbladder and elevate it over the liver edge, medial to grasp the infundibulum of the gallbladder and retract it laterally. The [place] dissector was then used to begin dissecting away the peritoneum at the base of the gallbladder, and the first structure identified actually appeared to be the cystic artery. It was clearly a vascular structure running directly onto the lower anterior surface of the gallbladder. This was isolated clearly and visualized from both sides. It was then clipped, 2 proximally and 1 distally, with medium Weck clips, and divided with Endo scissors. The stump was noted to pulsate. Additional dissection was then undertaken in the peritoneum covering the base of the gallbladder for the cystic duct, which was then identified clearly in the critical view from both medial and lateral sides as the only structure directly entering the gallbladder itself. This was also clipped, 2 proximally and 1 distally, with the locking Weck clips, and divided with Endo scissors. The hook cautery was then used to begin taking the gallbladder off the liver bed but dissection was continued carefully just at the base of the gallbladder in case of the presence of a posterior arterial branch, which was also then noted. This was carefully isolated with the [place] dissector one more time and clipped, 2 proximally and 1 distally, with 5-mm Endo Clips, and then divided with Endo scissors as well. The hook cautery was then used to continue and complete taking the gallbladder off of the liver bed, which was accomplished without inadvertent entry into the gallbladder itself. Once the gallbladder had been completely from the liver edge, it was placed in an EndoCatch bag and retrieved out the umbilical port site, with the camera switched temporarily to the subxiphoid port. This was passed off the table for a pathology specimen and could be palpated to contain at least 1 moderate size gallstone. With a fingertip in the umbilical port to maintain pneumoperitoneum, the camera was then used in several of the other ports in different directions to enable visualization of the area both over the liver edge and just underneath the liver edge in the operative site by using a grasper to gently lift the liver, and the suction yeast culture developer was used to suction only the blood and fluid from just over and under the liver edges. There has been no spill and the amount of fluid suctioned was fairly small, thus no additional attempt to explore the operative area was made. The patient was returned to neutral position. The right upper quadrant ports were removed under direct vision from the subxiphoid port, which was then also removed with the camera, and the abdomen exsufflated of carbon dioxide. The stay suture at the umbilical port site was tied to close the fascia there. Hemostasis was achieved in the port sites with electrocautery where needed, and local anesthetic was infiltrated into all 4 port sites, for a total of 20 mL. The skin was closed with 4-0 Vicryl subcuticular sutures, including a running at the umbilicus. The incisions were then covered with benzoin and Steri-Strips, and dressings of gauze and Tegaderm were placed over these. Counts were correct at the end of the procedure. The patient was then awakened and extubated by Anesthesia. She was able to move herself back onto a stretcher and was taken to the recovery room in stable condition, having tolerated the procedure well. Sun Castro was an essential assistant producer throughout the procedure, including facilitating entry into the abdominal cavity, grasping and manipulating the gallbladder throughout the case, and assistance with closing the skin at the end of the procedure. The medical student also helped with handling and manipulating the laparoscope. Chip Henderson M.D. [id number]
[2017-12-22] MEDS: DOCUSATE SODIUM 100 MG CAPSULE (FP) PO SCH (22:00)
[2017-12-23] MEDS: IBUPROFEN 600 MG TABLET (FP) PO SCH ×2 (02:15→08:34)
[2017-12-23] MEDS: oxyCODONE HCL 5 MG TABLET PO PRN (05:32)
[2017-12-23] MEDS: ACETAMINOPHEN 325 MG TABLET (FP) PO SCH (05:32)
[2017-12-23 06:43] VITALS: TEMP 98.2
[2017-12-23 08:58] VITALS: BP 111/74; PULSE 74
--- NOTE | 2017-12-23 09:51 | PN ---
Progress Note, Physician History of Present Illness: doing well no new issues pain around the incision site rest no issues - Current Medication List Current Medications: Active Medications Acetaminophen (Tylenol -) 650 mg PO Q6H [facility] Last Admin: 12/23/17 05:32 Dose: 650 mg Docusate Sodium (Colace -) 100 mg PO BID [facility] Last Admin: 12/22/17 22:00 Dose: 100 mg Ibuprofen (Motrin -) 600 mg PO Q6H [facility] Last Admin: 12/23/17 08:34 Dose: 600 mg Ondansetron HCl (Zofran Injection) 4 mg IVPUSH Q6H PRN PRN Reason: NAUSEA Oxycodone HCl (Roxicodone -) 5 mg PO Q6H PRN PRN Reason: Pain Level 7 - 10 BREAKTHROUGH Last Admin: 12/23/17 05:32 Dose: 5 mg - Objective Vital Signs: Vital Signs Temperature 98.2 F 12/23/17 06:41 Pulse Rate 74 12/23/17 08:55 Respiratory Rate 16 12/23/17 08:55 Blood Pressure 111/74 12/23/17 08:55 O2 Sat by Pulse Oximetry (%) 99 12/22/17 21:00 Constitutional: Yes: No Distress, Calm Cardiovascular: Yes: Regular Rate and Rhythm Respiratory: Yes: Regular, CTA Bilaterally Gastrointestinal: Yes: Normal Bowel Sounds, Soft Musculoskeletal: Yes: WNL Extremities: Yes: WNL Wound/Incision: Yes: Dressing Dry and Intact Neurological: Yes: Alert, Oriented Psychiatric: Yes: Alert, Oriented Labs: CBC, BMP 12/21/17 06:20 12/21/17 09:00 INR, PTT INR 1.12 (0.82-1.09) 12/21/17 06:20 Assessment/Plan Problem List - Problems (1) Calculus of gallbladder with acute cholecystitis without obstruction Code(s): K80.00 - CALCULUS OF GALLBLADDER W ACUTE CHOLECYST W/O OBSTRUCTION (2) RUQ pain Code(s): R10.11 - RIGHT UPPER QUADRANT PAIN (3) Nausea and vomiting Code(s): R11.2 - NAUSEA WITH VOMITING, UNSPECIFIED Qualifiers: Vomiting type: unspecified Vomiting Intractability: non-intractable Qualified Code(s): R11.2 - Nausea with vomiting, unspecified (4) Hypertriglyceridemia Code(s): E78.1 - PURE HYPERGLYCERIDEMIA patient with the above symptoms known history of choleycystitis from some time plan patient stable pain mgmt rest as per the surgical team
--- NOTE | 2017-12-23 10:09 | DS ---
Physical Examination Vital Signs: Vital Signs Temperature 98.2 F 12/23/17 06:41 Pulse Rate 74 12/23/17 08:55 Respiratory Rate 16 12/23/17 08:55 Blood Pressure 111/74 12/23/17 08:55 O2 Sat by Pulse Oximetry (%) 99 12/22/17 21:00 Findings/Remarks: Pt seen and examined in bed, seen with Dr. Garces. Tolerating diet, ambulating, voiding, no flatus or BM yet. C/O pain in epigastric area, used oxycodone ~5: 30am. Ready to go home. Constitutional: Yes: Well Nourished, No Distress, Calm Eyes: Yes: Conjunctiva Clear, EOM Intact. No: Sclera Icterus HENT: Yes: Atraumatic, Normocephalic Cardiovascular: Yes: Regular Rate and Rhythm. No: Murmur Respiratory: Yes: Regular, CTA Bilaterally Gastrointestinal: Yes: Normal Bowel Sounds, Soft, Abdomen, Obese, Tenderness ( mild epigastric/incisional) Musculoskeletal: No: Joint Stiffness, Joint Swelling Extremities: No: Cool, Cyanosis Integumentary: Yes: Incision (x4 dressed). No: Jaundice, Rash Wound/Incision: Yes: Steri Strips (under dressings), Dressing Dry and Intact ( except subxiphoid - light pink staining - will change dressing). No: Dressing Removed Neurological: Yes: Alert, Oriented Labs: no new labs Discharge Summary Reason For Visit: ACUTE CHOLECYSTITIS Current Active Problems Calculus of gallbladder with acute cholecystitis without obstruction (Acute) Hypertriglyceridemia (Acute) Nausea and vomiting (Acute) RUQ pain (Acute) Procedures: Principal: laparoscopic cholecystectomy Hospital Course: 31yo obese F with h/o hypertriglyceridemia no longer on meds and cholelithiasis diagnosed end of September, presented to ER with recurrence of biliary colic few days prior and significant epigastric/RUQ pain from overnight associated with nausea and vomiting. In ER, she had wbc 11.5 and US showed 1.6cm stone in neck of gallbladder with mild wall thickening consistent with early cholecystitis. Repeat labs were normal the next day, and she was taken for laparoscopic cholecystectomy with findings of mild gallbladder edema and a moderate-sized stone palpable inside. Postoperatively, she has ambulated, voided, and tolerated diet. Pain required oxycodone in addition to tylenol and ibuprofen scheduled, but is controlled with oral meds. She is discharged with lifting restrictions to follow up in 2 weeks with surgery and also her PMD. Time spent on discharge 35 minutes. Condition: Good - Instructions Diet, Activity, Other Instructions: Postoperative instructions: You had a laparoscopic cholecystectomy on 12/22/[address] Chip Henderson of [facility]. Activity: Resume your usual activities gradually, but no heavy exertion or lifting more than 10-15 pounds for 1 month. Remove dressings 48 hours after surgery; sticky tapes underneath will fall off by themselves. You may shower daily starting then, just pat the incision areas dry. No bath or swimming until skin incisions have healed. Eat lightly at first, but advance to your usual diet as tolerated. Pain: For pain, you may use and alternate Tylenol (acetaminophen) and/or ibuprofen every 6 hours each as needed; this means that you can take one OR the other at 3-hour intervals. If you are prescribed a Tylenol/narcotic combination for severe pain, use it instead of plain Tylenol as needed and switch back when your pain starts decreasing. Do not take more than 4000mg of acetaminophen in a day. Take medications as prescribed or indicated on the labeling. Follow-up: Call Dr. Henderson's office at [phone] to make your postop appointment (Thursday ~2 weeks after surgery). Clinic is held in the [facility] on the first floor of [facility]. Call the office if you have: * increasing pain not responsive to pain medication * fever of 101F or higher * vomiting * unusual or increasing bleeding or drainage from wounds * increasing redness or swelling at wound sites Also, see your primary medical doctor within 1-2 weeks. Referrals: David Gee MD [Primary Care Provider] - Disposition: HOME - Home Medications Comprehensive Discharge Medication List: Ambulatory Orders Acetaminophen [Tylenol .Regular Strength -] 650 mg PO Q6H tablet 12/22/17 Ibuprofen [Motrin -] 600 mg PO Q6H tablet 12/22/17 Oxycodone HCl/Acetaminophen [Percocet 5-325 mg Tablet] 1 tab PO Q6H PRN #12 tablet MDD 6 12/23/17
[2017-12-23] MEDS: DOCUSATE SODIUM 100 MG CAPSULE (FP) PO SCH (10:30)
--- NOTE | 2017-12-23 10:33 | PN ---
Progress Note, Physician Chief Complaint: s/p lap rahul - Current Medication List Current Medications: Active Medications Acetaminophen (Tylenol -) 650 mg PO Q6H [facility] Last Admin: 12/23/17 05:32 Dose: 650 mg Docusate Sodium (Colace -) 100 mg PO BID [facility] Last Admin: 12/23/17 10:30 Dose: 100 mg Ibuprofen (Motrin -) 600 mg PO Q6H [facility] Last Admin: 12/23/17 08:34 Dose: 600 mg Ondansetron HCl (Zofran Injection) 4 mg IVPUSH Q6H PRN PRN Reason: NAUSEA Oxycodone HCl (Roxicodone -) 5 mg PO Q6H PRN PRN Reason: Pain Level 7 - 10 BREAKTHROUGH Last Admin: 12/23/17 05:32 Dose: 5 mg - Objective Vital Signs: Vital Signs Temperature 98.2 F 12/23/17 06:41 Pulse Rate 74 12/23/17 08:55 Respiratory Rate 16 12/23/17 08:55 Blood Pressure 111/74 12/23/17 08:55 O2 Sat by Pulse Oximetry (%) 99 12/22/17 21:00 Labs: CBC, BMP 12/21/17 06:20 12/21/17 09:00 INR, PTT INR 1.12 (0.82-1.09) 12/21/17 06:20 Assessment/Plan Pt doing well; no anesthetic issues. Pt is about to be discharged home
== END 2017-12-23 10:54 | disposition home or self-care (01) | DRG 419 ==
LOC: JER 02:00 → JERBED 11:44 → J8W 15:06
PROVIDERS: ADMIT Surgery; ATTEND Surgery
PROC: 0FT44ZZ Resection of Gallbladder, Percutaneous Endoscopic Approach (ICD-10-PCS; principal; 2017-12-22 07:30)
DX: K80.00 Calculus of gallbladder with acute cholecystitis without obstruction (principal); E78.1 Pure hyperglyceridemia; R11.2 Nausea with vomiting, unspecified; R10.11 Right upper quadrant pain; E66.9 Obesity, unspecified; Z68.34 Body mass index [BMI] 34.0-34.9, adult
CPT/HCPCS: 36415; 76705-TC; 80053; 81003; 81015; 82150; 83690; 84703; 85025; 85610; 86850; 86900; 86901; 88304-TC; 93005; 93010; 94760; 99282-25; J0131; J7030

== ENCOUNTER 2018-12-24 20:04 | Emergency (ER) | payer OTHER, BC ==
--- NOTE | 2018-12-24 20:11 | PDOC ---
Rapid Medical Evaluation Time Seen by Provider: 12/24/18 20:08 Medical Evaluation: Allergies Allergy/AdvReac Type Severity Reaction Status Date / Time No Known Allergies Allergy Verified 12/20/17 05:15 12/24/18 20:09 I have performed a brief in-person evaluation of this patient. The patient presents with a chief complaint of: neck and back pain s/p fall yesterday. Seen by myself at [facility] yesterday w/ negative L elbow and LS XR. Taking motrin w/ no relief per pt Pertinent physical exam findings:unremarkable I have ordered the following:nothing The patient will proceed to the ED for further evaluation. Discharge Disposition - Diagnosis Back pain Qualifiers: Back pain location: low back pain Chronicity: acute Back pain laterality: unspecified Sciatica presence: without sciatica Qualified Code(s): M54.5 - Low back pain - Referrals - Patient Instructions - Post Discharge Activity
[2018-12-24 20:12] VITALS: BP 116/78; PULSE 78; TEMP 98.2; BMI 34.0
--- NOTE | 2018-12-24 21:08 | PDOC ---
History of Present Illness - General Chief Complaint: Pain Stated Complaint: BODY PAIN Time Seen by Provider: 12/24/18 20:08 History Source: Patient - History of Present Illness Initial Comments: 12/24/18 21:02 Complaint: Fall Healthy 32-year-old female who states she was walking [place] yesterday at the train, fell backwards, hitting her back on the step. She also injured her elbow. She was seen at urgent care yesterday had an x-ray of her lower back and her elbow. Patient has been taking Motrin 800 mg in the morning today and then again at 3:30. Patient states that it's not helping the pain. Patient is ambulatory and able to move very well. Patient mostly seems concerned to find out if this is going to cause her disability. No numbness, incontinence or saddle anesthesia GENERAL/CONSTITUTIONAL: No fever, weakness. dizziness HEAD, EYES, EARS, NOSE AND THROAT: No change in vision. No ear pain or discharge. No sore throat. CARDIOVASCULAR: No chest pain RESPIRATORY: No shortness of breath or cough GASTROINTESTINAL: No pain, nausea, vomiting, diarrhea or constipation GENITOURINARY: No dysuria MUSCULOSKELETAL: +neck, back pain SKIN: No rash NEUROLOGIC: No headache, vertigo, loss of consciousness, or loss of sensation. GENERAL: The patient is awake, alert, and fully oriented, in no acute distress. HEAD: Normal with no signs of trauma. EYES: Pupils equal, round and reactive to light, sclera anicteric, conjunctiva clear. ENT: pharynx: no erythema, no exudate, uvula midline NECK: supple, posterior tenderness, good range of motion, bilateral posterior trapezius tenderness and paraspinal tenderness. CHEST: clear, nontender, rr ABD: soft, nontender BACK: no tenderness or signs of injury EXTREMITIES: Normal range of motion, no edema. NEUROLOGICAL: Normal speech, normal gait. Cranial nerves II through XII grossly intact, no gross focal abnormalities SKIN: Warm, Dry Past History - Past Medical History Allergies/Adverse Reactions: Allergies Allergy/AdvReac Type Severity Reaction Status Date / Time No Known Allergies Allergy Verified 12/20/17 05:15 Home Medications: Ambulatory Orders Acetaminophen [Tylenol .Regular Strength -] 650 mg PO Q6H tablet 12/22/17 Ibuprofen [Motrin -] 600 mg PO Q6H tablet 12/22/17 Oxycodone HCl/Acetaminophen [Percocet 5-325 mg Tablet] 1 tab PO Q6H PRN #12 tablet MDD 6 12/23/17 Oxycodone HCl/Acetaminophen [Percocet 5-325 mg Tablet] 1 tab PO Q6H PRN #12 tablet MDD 4 12/24/18 Cardiac Disorders: Yes (tachycardia) COPD: No - Suicide/Smoking/Psychosocial Hx Smoking Status: No Smoking History: Never smoked Have you smoked in the past 12 months: No Number of Cigarettes Smoked Daily: 0 Hx Alcohol Use: No Drug/Substance Use Hx: No Substance Use Type: None Hx Substance Use Treatment: No *Physical Exam - Vital Signs Last Vital Signs Temp Pulse Resp BP Pulse Ox 98.2 F 78 19 116/78 99 12/24/18 20:09 12/24/18 20:09 12/24/18 20:09 12/24/18 20:09 12/24/18 20:09 Medical Decision Making - Medical Decision Making 12/24/18 21:04 Healthy 32-year-old female with mechanical fall, hit her back yesterday, also complaining of neck and back pain, had x-rays at urgent care of lower back and elbow. Patient is neurologically intact, able to ambulate without difficulty sit and stand and move without difficulty. Patient states the Motrin is not helping her pain, patient would like something to sleep tonight that she will not be in so much pain. Patient had cholecystitis last year, had a prescription for Percocet which she states she did well with. She did not remember the name but review of the EMR shows that it was Percocet. We'll prescribe small amount. Will have patient follow up with orthopedist this week. Patient has no neurological symptoms. She has no incontinence, numbness or saddle anesthesia. No indication for further imaging or workup. Discussed issues, findings, results, applicable medications and treatments and follow-up. All these were understood and all questions were answered *DC/Admit/Observation/Transfer Diagnosis at time of Disposition: Back pain Qualifiers: Back pain location: low back pain Chronicity: acute Back pain laterality: unspecified Sciatica presence: without sciatica Qualified Code(s): M54.5 - Low back pain - Discharge Dispostion Disposition: HOME Condition at time of disposition: Stable Decision to Admit order: No - Prescriptions Prescriptions: Oxycodone HCl/Acetaminophen [Percocet 5-325 mg Tablet] 1 tab PO Q6H PRN #12 tablet MDD 4 PRN Reason: Back Pain - Referrals Referrals: Geovanni Padilla MD [Staff Physician] - - Patient Instructions Printed Discharge Instructions: DI for Prescription Opioid Use, DI for Back Strain or Sprain Additional Instructions: No heavy lifting or bending Apply ice to the area 20 minutes every 2 hours for the next 2 days Continue taking Motrin 600 mg every 6 hours for pain. If still in pain he can also take Percocet one tablet every 6 hours. Return to the nearest ER if numbness, weakness, severe pain, problems with urinating or having bowel movements. Call orthopedist today for an appointment for further evaluation - Post Discharge Activity
== END 2018-12-24 21:23 | disposition home or self-care (01) ==
LOC: JERFT 20:04
DX: M54.5 Low back pain (principal); M25.522 Pain in left elbow; W10.8XXA Fall (on) (from) other stairs and steps, initial encounter; Y93.89 Activity, other specified; Y92.522 Railway station as the place of occurrence of the external cause; Y99.8 Other external cause status
CPT/HCPCS: 99281-25

== ENCOUNTER 2020-01-15 15:50 | Emergency (ER) | payer OTHER, BC ==
[2020-01-15 15:55] VITALS: TEMP 98.7; BMI 32.1
--- NOTE | 2020-01-15 16:25 | PDOC ---
History of Present Illness - General Chief Complaint: Vaginal Bleeding Stated Complaint: VAG BLEED Time Seen by Provider: 01/15/20 15:59 History Source: Patient Exam Limitations: No Limitations - History of Present Illness Initial Comments: 01/15/20 16:25 Amber Persaud is a 34F who recently suffered a miscarriage 2 days ago now presenting with large volume vaginal bleeding. Patient reports she was at ~6 weeks 7 days ago when she went in for ultrasound and no FHR noted. Went in for repeat US a few days later with no FHR, told she was going to have miscarriage. Seven days passed without miscarriage until 2 days ago when she started having cramps and vaginal bleeding, passed some clots, but bleeding resolved. Yesterday some mild spotting. Today 2 hours MANAGER TALENT had severe cramping and 20 pads of vaginal bleeding with clots. Reports SOB and lightheadedness with standing. Denies F/C, N/V, urinary sx, ELLIOTT, chest pain, cough. No PMH or FH of bleeding diathesis. First miscarriage. Has daughter age 5. NKDA. No other PMH. No other PSH. Denies alcohol/drug/tobacco use. Past History - Medical History Allergies/Adverse Reactions: Allergies Allergy/AdvReac Type Severity Reaction Status Date / Time No Known Allergies Allergy Verified 01/15/20 15:55 Home Medications: Ambulatory Orders Acetaminophen [Tylenol .Regular Strength -] 650 mg PO Q6H tablet 12/22/17 Ibuprofen [Motrin -] 600 mg PO Q6H tablet 12/22/17 Oxycodone HCl/Acetaminophen [Percocet 5-325 mg Tablet] 1 tab PO Q6H PRN #12 tablet MDD 6 12/23/17 Oxycodone HCl/Acetaminophen [Percocet 5-325 mg Tablet] 1 tab PO Q6H PRN #12 tablet MDD 4 12/24/18 Cardiac Disorders: Yes (tachycardia) COPD: No - Reproductive History Is Patient Now?: No - Psycho-Social/Smoking History Smoking Status: No Smoking History: Never smoked Have you smoked in the past 12 months: No Number of Cigarettes Smoked Daily: 0 Review of Systems - Review of Systems Able to Perform ROS?: Yes Constitutional: No: Symptoms Reported HEENTM: No: Symptoms Reported Respiratory: Yes: Shortness of Breath, SOB with Exertion, SOB at Rest. No: Cough Cardiac (ROS): Yes: Lightheadedness. No: Chest Pain ABD/GI: Yes: Abdominal cramping. No: Constipated, Diarrhea, Nausea, Poor Appetite, Poor Fluid Intake, Vomiting : No: Symptoms Reported Musculoskeletal: No: Symptoms Reported Integumentary: No: Symptoms Reported Neurological: No: Symptoms reported Endocrine: No: Symptoms Reported Hematologic/Lymphatic: Yes: Blood Clots All Other Systems: Reviewed and Negative *Physical Exam - Vital Signs Last Vital Signs Temp Pulse Resp BP Pulse Ox 98.7 F 115 H 20 108/66 99 01/15/20 15:51 01/15/20 15:51 01/15/20 15:51 01/15/20 15:51 01/15/20 15:51 - Physical Exam General Appearance: Yes: Nourished, Appropriately Dressed, Obese. No: Apparent Distress HEENT: positive: EOMI, EVELYN, Normal ENT Inspection, Normal Voice, Symmetrical, Pharynx Normal, Hearing Grossly Normal. negative: Scleral Icterus (R), Scleral Icterus (L), Pharyngeal Erythema, Tonsillar Exudate, Tonsillar Erythema Neck: positive: Trachea midline, Normal Thyroid, Supple. negative: Tender, Rigid, Decreased range of motion, Lymphadenopathy (R), Lymphadenopathy (L) Respiratory/Chest: positive: Lungs Clear, Normal Breath Sounds. negative: Chest Tender, Respiratory Distress, Accessory Muscle Use, Crackles, Rales, Rhonchi, Stridor, Wheezing Cardiovascular: positive: Regular Rhythm, Regular Rate Female Pelvic Exam: positive: normal external exam, cervical os closed, normal adnexa, vaginal bleeding, other (~150-200cc pooled blood in vaginal vault with several large clots evacuated, os closed, non-tender) Gastrointestinal/Abdominal: positive: Normal Bowel Sounds, Flat, Soft. negative: Tender, Organomegaly, Pulsatile Mass, Guarding, Rebound, Hernia Musculoskeletal: positive: Normal Inspection. negative: CVA Tenderness, Decreased Range of Motion, Vertebral Tenderness Extremity: positive: Normal Capillary Refill, Normal Inspection, Normal Range of Motion, Pelvis Stable. negative: Tender, Pedal Edema, Swelling, Calf Tenderness Integumentary: positive: Normal Color, Dry, Warm, Bruising. negative: Pale, Cold, Clammy Neurologic: positive: Fully Oriented, Normal Mood/Affect, Normal Response, Other (gait normal) ED Treatment Course - LABORATORY CBC & Chemistry Diagram: 01/15/20 07:54 01/15/20 04:35 Medical Decision Making - Medical Decision Making 01/15/20 17:59 Patient suffered miscarriage 2 days ago at 6 weeks, no bleeding yesterday, now here for ~20 pads bled through and symptomatic anemia including SOB and lightheadedness. Pelvic exam shows closed os with pooled vaginal blood. Ordering CMP/CBC/T&S/Coags/UA/BETAQuant. Ordered Ofirmev for pain control. Getting TVUS to evaluate for retained products. Will re-check H/H in a few hours to track blood loss. Will likely be eligible for discharge with T[facility] f/u after US and repeat H/H. Labs notable for: - Hgb 8.3 - CMP WNL - Beta 824.4 - Coags WNL - Blood Type O+, no need for RhoGAM 01/17/20 07:42 Signed out to night team Dr. Tolentino, plan for f/u US and transfuse if necessary, consider [facility] consult. Discharge - Discharge Information Problems reviewed: Yes Clinical Impression/Diagnosis: Miscarriage, Vaginal bleeding Condition: Guarded Disposition: HOME - Admission No - Follow up/Referral Referrals: Jimmy Anderson MD [Staff Physician] - Beryl Shaw MD [Staff Physician] - Paddy Gastelum MD [Staff Physician] - - Patient Discharge Instructions Patient Printed Discharge Instructions: DI for Miscarriage Additional Instructions: Today you were evaluated for a lot of vaginal bleeding after a miscarriage. Know that the miscarriage is not your fault. Your labs show that your blood levels are okay. Your ultrasound shows At home, please rest and eat a healthy diet. You need to follow-up with your primary doctor or an [facility] ESC[facility] in the next week for further care, and a referral has been given. You will likely experience more bleeding and cramping in the next few days as you pass the miscarriage. Take Tylenol or Motrin as instructed on the label. If you experience worsening bleeding, difficulty breathing, have trouble walking, or have any other new or concerning symptoms, please return to the emergency room. - Post Discharge Activity Work/Back to School Note: Back to Work
[2020-01-15] MEDS ORDERED: ACETAMINOPHEN 1000 MG/100 ML VIAL (NON FORMULARY) IVPB ONE (16:47)
[2020-01-15 17:04] LABS: BASO % 0.6 % (0-2.0); EOS % 0.7 % (0-4.5); HEMATOCRIT 24.8 % (32.4-45.2); HEMOGLOBIN 8.3 GM/dL (10.7-15.3); LYMPH % 14.5 % (8-40); MCH 29.3 pg (25.7-33.7); MCHC 33.2 g/dl (32.0-36.0); MEAN CELL VOLUME 88.1 fl (80-96); MEAN PLT VOLUME 8.5 fl (7.5-11.1); MONO % 5.5 % (3.8-10.2); NEUT % 78.7 % (42.8-82.8); PLATELET COUNT 266 K/MM3 (134-434); RBC 2.82 M/mm3 (3.60-5.2); RDW 13.3 % (11.6-15.6); WHITE BLOOD COUNT 11.3 K/mm3 (4.0-10.0)
[2020-01-15] MEDS ORDERED: ACETAMINOPHEN INJECTION 100 ML IVPB ONE (17:11)
[2020-01-15 17:33] LABS: INR 1.16 (0.83-1.09); PROTHROMBIN TIME (PATIENT) 13.7 SEC (9.7-13.0)
--- NOTE | 2020-01-15 17:39 | PDOC ---
Documentation entered by Jagruti Lugo SCRIBE, acting as scribe for Jenny Nicole MD. Jenny Nicole MD: This documentation has been prepared by the [facility] [place], SCRIBE, under my direction and personally reviewed by me in its entirety. I confirm that the documentation accurately reflects all work, treatment, procedures, and medical decision making performed by me. Attending Attestation - Resident Resident Name: Tony Chao - ED Attending Attestation I have performed the following: I have examined & evaluated the patient, The case was reviewed & discussed with the resident, I agree w/resident's findings & plan, Exceptions are as noted - HPI HPI: 01/15/20 16:23 Patient is a 34 year old female with a significant past medical history of hypertriglyceridemia with known cholelithiasis who presents to the ED for evaluation of miscarriage. Patient stated she was , saw OBGYN, at both 6 and 7 weeks baby had no heartbeat during ultrasound. Patient reports she spontaneously had a miscarriage 2 days ago (on Thursday), had no bleeding on Thursday but earlier today (2 hours ago) she started bleeding a lot - said she went through 20 pads with bleeding cramping, SOB, and lightheadedness. Patient denies: any other related symptoms. Allergies: NKDA - Physicial Exam PE: 01/15/20 17:27 Agree with residet exam. Patient is well appearing and in no acute distress. + large amounts of blood and clots pooled in the vaginal vault on pelvic exam. Os closed. - Medical Decision Making 01/15/20 17:29 Pt presents to the ED complaining of heavy vaginal bleeding. , 6 weeks by dates. Significant vaginal bleeding on pelvic exam but closed os. Hgb 8. Will check US to evaluate for retained products, recheck Hgb and reassess. If HGB remains stable will likely discharge patient home with [facility] [employer] [employer] follow up. 01/15/20 17:32 Discharge - Discharge Information Problems reviewed: Yes Clinical Impression/Diagnosis: Miscarriage, Vaginal bleeding Condition: Guarded Disposition: HOME - Follow up/Referral Referrals: Beryl Shaw MD [Staff Physician] - Paddy Gastelum MD [Staff Physician] - Jimmy Anderson MD [Staff Physician] - - Patient Discharge Instructions Patient Printed Discharge Instructions: DI for Miscarriage Additional Instructions: Today you were evaluated for a lot of vaginal bleeding after a miscarriage. Know that the miscarriage is not your fault. Your labs show that your blood levels are okay. Your ultrasound shows At home, please rest and eat a healthy diet. You need to follow-up with your primary doctor or an FAMILY ASSISTANT in the next week for further care, and a referral has been given. You will likely experience more bleeding and cramping in the next few days as you pass the miscarriage. Take Tylenol or Motrin as instructed on the label. If you experience worsening bleeding, difficulty breathing, have trouble walking, or have any other new or concerning symptoms, please return to the emergency room. - Post Discharge Activity Work/Back to School Note: Back to Work
[2020-01-15 17:40] LABS: ALBUMIN 3.2 g/dl (3.4-5.0); BILIRUBIN,TOTAL 0.3 mg/dL (0.2-1); CALCIUM 7.8 mg/dL (8.5-10.1); CREATININE 0.9 mg/dL (0.55-1.3); POTASSIUM 3.8 mmol/L (3.5-5.1); TOT PROT 6.1 g/dl (6.4-8.2)
[2020-01-15] MEDS ORDERED: MORPHINE SULFATE 2 MG/ML VIAL IVPUSH ONE (18:41)
[2020-01-15] MEDS ORDERED: MORPHINE SULFATE 2 MG/ML VIAL ONE (18:42)
--- NOTE | 2020-01-15 19:04 | PDOC ---
*Physical Exam - Vital Signs Last Vital Signs Temp Pulse Resp BP Pulse Ox 98.7 F 84 14 110/71 100 01/15/20 15:51 01/15/20 18:39 01/15/20 18:39 01/15/20 18:39 01/15/20 18:39 - Physical Exam GENERAL: Awake, alert, and fully oriented, in no acute distress HEAD: No signs of trauma, normocephalic, atraumatic EYES: PERRLA, EOMI, sclera anicteric, conjunctiva clear ENT: Auricles normal inspection, hearing grossly normal, nares patent, oropharynx clear without exudates. Moist mucosa NECK: Normal ROM, supple, no lymphadenopathy, JVD, or masses LUNGS: No distress, speaks full sentences, clear to auscultation bilaterally HEART: Regular rate and rhythm, normal S1 and S2, no murmurs, rubs or gallops, peripheral pulses normal and equal bilaterally. ABDOMEN: Soft, nontender, normoactive bowel sounds. No guarding, no rebound. No masses EXTREMITIES : Normal inspection, Normal range of motion, no edema. No clubbing or cyanosis. NEUROLOGICAL: Cranial nerves II through XII grossly intact. Normal speech, normal gait, no focal sensorimotor deficits SKIN: Warm, Dry, normal turgor, no rashes or lesions noted ED Treatment Course - LABORATORY CBC & Chemistry Diagram: 01/15/20 07:54 01/15/20 04:35 - ADDITIONAL ORDERS Additional order review: Laboratory Results 01/15/20 01/15/20 01/15/20 17:05 04:50 04:35 PT with INR 13.70 H INR 1.16 H PTT (Actin FS) 36.0 Sodium Potassium Chloride Carbon Dioxide Anion Gap BUN Creatinine Est GFR (CKD-EPI)AfAm Est GFR (CKD-EPI)NonAf Random Glucose Calcium Total Bilirubin AST ALT Alkaline Phosphatase Total Protein Albumin Beta HCG, Quant Cancelled Anti-A Titer Blood Type O POSITIVE Antibody Screen Negative 01/15/20 01/15/20 04:35 04:35 PT with INR INR PTT (Actin FS) Sodium 142 Potassium 3.8 Chloride 110 H Carbon Dioxide 21 Anion Gap 11 BUN 10.0 Creatinine 0.9 Est GFR (CKD-EPI)AfAm 97.37 Est GFR (CKD-EPI)NonAf 84.01 Random Glucose 106 Calcium 7.8 L Total Bilirubin 0.3 AST 31 ALT 40 Alkaline Phosphatase 42 L Total Protein 6.1 L Albumin 3.2 L Beta HCG, Quant 824.4 Anti-A Titer Cancelled Blood Type Cancelled Antibody Screen Cancelled 01/15/20 04:35 RBC 2.82 L MCV 88.1 MCHC 33.2 RDW 13.3 MPV 8.5 Neutrophils % 78.7 D Lymphocytes % 14.5 D Monocytes % 5.5 Eosinophils % 0.7 D Basophils % 0.6 - Medications Given in the ED: ED Medications Discontinued Medications Generic Name Dose Route Start Last Admin Trade Name Tiara PRN Reason Stop Dose Admin Acetaminophen 1,000 mg 01/15/20 16:47 01/15/20 17:20 Ofirmev Injection - IVPB 01/15/20 16:48 1,000 mg ONCE ONE Administration Morphine Sulfate 2 mg 01/15/20 18:41 01/15/20 18:48 Morphine Sulfate IVPUSH 01/15/20 18:42 2 mg ONCE ONE Administration Medical Decision Making - Medical Decision Making 01/15/20 19:02 34 yo female who is presents to ED 6 weeks who is actively miscarrying. Pt today has been through 20 pads and has SOB. Pt hgb is low to 8. Pelvic exam shows pooling of blood and clots with a closed os. Ultrasound shows retained parts. At 7pm recheck CBC track anemia if less than 7.5 tra nsfuse. Consult OBGYN and admit. IF not possible discharge. 01/15/20 20:33 Pt hgb came back at 7.6 so will discharge with OB follow up. Discharge - Discharge Information Problems reviewed: Yes Clinical Impression/Diagnosis: Miscarriage, Vaginal bleeding Condition: Guarded Disposition: HOME - Follow up/Referral Referrals: Beryl Shaw MD [Staff Physician] - Paddy Gastelum MD [Staff Physician] - Jimmy Anderson MD [Staff Physician] - - Patient Discharge Instructions Patient Printed Discharge Instructions: DI for Miscarriage Additional Instructions: Today you were evaluated for a lot of vaginal bleeding after a miscarriage. Know that the miscarriage is not your fault. Your labs show that your blood levels are okay. Your ultrasound shows At home, please rest and eat a healthy diet. You need to follow-up with your primary doctor or an MANAGER WILLOW in the next week for further care, and a referral has been given. You will likely experience more bleeding and cramping in the next few days as you pass the miscarriage. Take Tylenol or Motrin as instructed on the label. If you experience worsening bleeding, difficulty breathing, have trouble walking, or have any other new or concerning symptoms, please return to the emergency room. - Post Discharge Activity Work/Back to School Note: Back to Work
[2020-01-15] MEDS ORDERED: KETOROLAC TROMETHAMINE 30 MG/1 ML VIAL IVPUSH ONE (19:18)
[2020-01-15 19:39] VITALS: BP 98/76; PULSE 87
[2020-01-15 20:20] LABS: HEMATOCRIT 23.4 % (32.4-45.2); HEMOGLOBIN 7.6 GM/dL (10.7-15.3); MCH 28.5 pg (25.7-33.7); MCHC 32.5 g/dl (32.0-36.0); MEAN CELL VOLUME 87.7 fl (80-96); MEAN PLT VOLUME 8.1 fl (7.5-11.1); PLATELET COUNT 282 K/MM3 (134-434); RBC 2.67 M/mm3 (3.60-5.2); RDW 13.3 % (11.6-15.6); WHITE BLOOD COUNT 13.9 K/mm3 (4.0-10.0)
[2020-01-15 20:26] LABS: EPI CELLS >36 /uL (0-25.1); HYALINE CASTS 3 /uL (0-3.1); PH,URINE 5.5 (5.0-8.0); URINE APPEARANCE CLEAR; URINE BACTERIA 2308 /uL (0-1359); URINE BILIRUBIN NEGATIVE (NEGATIVE); URINE COLOR ORANGE; URINE GLUCOSE (UA) NEGATIVE (NEGATIVE); URINE KETONE NEGATIVE (NEGATIVE); URINE LEUK ESTERASE NEGATIVE (NEGATIVE); URINE NITRITE NEGATIVE (NEGATIVE); URINE PROTEIN 1+ (NEGATIVE); URINE RBC 4914 /uL (0-23.9); URINE WBC 35 /uL (0-25.8)
--- NOTE | 2020-01-15 20:27 | PDOC ---
*Physical Exam - Vital Signs Last Vital Signs Temp Pulse Resp BP Pulse Ox 98.7 F 87 18 98/76 100 01/15/20 15:51 01/15/20 19:36 01/15/20 19:36 01/15/20 19:36 01/15/20 19:36 ED Treatment Course - LABORATORY CBC & Chemistry Diagram: 01/15/20 07:54 01/15/20 04:35 - ADDITIONAL ORDERS Additional order review: Laboratory Results 01/15/20 01/15/20 01/15/20 17:05 07:54 04:50 PT with INR 13.70 H INR 1.16 H PTT (Actin FS) 36.0 Sodium Potassium Chloride Carbon Dioxide Anion Gap BUN Creatinine Est GFR (CKD-EPI)AfAm Est GFR (CKD-EPI)NonAf Random Glucose Calcium Total Bilirubin AST ALT Alkaline Phosphatase Total Protein Albumin Beta HCG, Quant Urine Color [place] Urine Appearance Clear Urine pH 5.5 Ur Specific Fowler 1.043 H Urine Protein 1+ H Urine Glucose (UA) Negative Urine Ketones Negative Urine Blood 3+ H Urine Nitrite Negative Urine Bilirubin Negative Urine Urobilinogen 1.0 Ur Leukocyte Esterase Negative Urine WBC (Auto) 35 Urine RBC (Auto) 4914 Urine Casts (Auto) 3 U Epithel Cells (Auto) >36 Urine Bacteria (Auto) 2308 Anti-A Titer Blood Type O POSITIVE Antibody Screen Negative 01/15/20 01/15/20 01/15/20 04:35 04:35 04:35 PT with INR INR PTT (Actin FS) Sodium 142 Potassium 3.8 Chloride 110 H Carbon Dioxide 21 Anion Gap 11 BUN 10.0 Creatinine 0.9 Est GFR (CKD-EPI)AfAm 97.37 Est GFR (CKD-EPI)NonAf 84.01 Random Glucose 106 Calcium 7.8 L Total Bilirubin 0.3 AST 31 ALT 40 Alkaline Phosphatase 42 L Total Protein 6.1 L Albumin 3.2 L Beta HCG, Quant Cancelled 824.4 Urine Color Urine Appearance Urine pH Ur Specific Fowler Urine Protein Urine Glucose (UA) Urine Ketones Urine Blood Urine Nitrite Urine Bilirubin Urine Urobilinogen Ur Leukocyte Esterase Urine WBC (Auto) Urine RBC (Auto) Urine Casts (Auto) U Epithel Cells (Auto) Urine Bacteria (Auto) Anti-A Titer Cancelled Blood Type Cancelled Antibody Screen Cancelled 01/15/20 01/15/20 07:54 04:35 RBC 2.67 L 2.82 L MCV 87.7 88.1 MCHC 32.5 33.2 RDW 13.3 13.3 MPV 8.1 8.5 Neutrophils % 78.7 D Lymphocytes % 14.5 D Monocytes % 5.5 Eosinophils % 0.7 D Basophils % 0.6 - Medications Given in the ED: ED Medications Discontinued Medications Generic Name Dose Route Start Last Admin Trade Name Tiara PRN Reason Stop Dose Admin Acetaminophen 1,000 mg 01/15/20 16:47 01/15/20 17:20 Ofirmev Injection - IVPB 01/15/20 16:48 1,000 mg ONCE ONE Administration Ketorolac Tromethamine 30 mg 01/15/20 19:18 01/15/20 19:35 Toradol Injection - IVPUSH 01/15/20 19:19 Not Given ONCE ONE Morphine Sulfate 2 mg 01/15/20 18:41 01/15/20 18:48 Morphine Sulfate IVPUSH 01/15/20 18:42 2 mg ONCE ONE Administration Medical Decision Making - Medical Decision Making 01/15/20 20:27 Patient Name: DERICK MADERA THIS IS A PRELIMINARY REPORT FROM [facility] EXAM: Obstetrical ultrasound, less than 14 weeks, transabdominal and transvaginal with duplex of ovaries IMAGES:52 DATE OF EXAM: 2020-01-15 17:56:11 REASON FOR EXAM: Vaginal bleeding. Rule out retained products of conception. Miscarriage. COMPARISON: None. FINDINGS: Heterogeneous and thickened endometrial stripe measuring up to 2.2 cm in thickness. No visible intrauterine gestational sac. Mild hypervascularity of the posterior aspect of the endometrial stripe suggestive of residual products of conception. No large ovarian cysts. Duplex Ultrasound: Appropriate arterial and/or venous flow are noted in both ovaries, making torsion unlikely at this time. No significant free pelvic fluid. Ectopic is not excluded. 01/15/20 20:33 Pt doesn't have and ectopic, as she had a sono at 6 weeks gestation that showed an IUP. Pt feels well; not dizzy. She has Hb of 8>>7.6 and she has no active bleed She is stable to go Discharge - Discharge Information Problems reviewed: Yes Clinical Impression/Diagnosis: Miscarriage, Vaginal bleeding Condition: Guarded Disposition: HOME - Follow up/Referral Referrals: Beryl Shaw MD [Staff Physician] - Paddy Gastelum MD [Staff Physician] - Jimmy Anderson MD [Staff Physician] - - Patient Discharge Instructions Patient Printed Discharge Instructions: DI for Miscarriage Additional Instructions: Today you were evaluated for a lot of vaginal bleeding after a miscarriage. Know that the miscarriage is not your fault. Your labs show that your blood levels are okay. Your ultrasound shows At home, please rest and eat a healthy diet. You need to follow-up with your primary doctor or an [facility]IG[facility] PATROL COMMANDER in the next week for further care, and a referral has been given. You will likely experience more bleeding and cramping in the next few days as you pass the miscarriage. Take Tylenol or Motrin as instructed on the label. If you experience worsening bleeding, difficulty breathing, have trouble walking, or have any other new or concerning symptoms, please return to the emergency room. - Post Discharge Activity Work/Back to School Note: Back to Work
--- NOTE | 2020-01-16 09:16 | EKG ---
Test Reason : Blood Pressure : / mmHG Vent. Rate : 084 BPM Atrial Rate : 084 BPM P-R Int : 144 ms QRS Dur : 084 ms QT Int : 362 ms P-R-T Axes : 041 050 022 degrees QTc Int : 427 ms NORMAL SINUS RHYTHM NORMAL ECG WHEN COMPARED WITH ECG OF 20-DEC-2017 14:41, NO SIGNIFICANT CHANGE WAS FOUND Confirmed by Aixa Phelps ([id number]) on 01/16/2020 9:16:20 AM Referred By: Confirmed By:Aixa Phelps
== END 2020-01-15 20:43 | disposition home or self-care (01) ==
LOC: JER 15:50 → SUPCPDRO 15:50 → JER 20:43
PROC: 3E033GC Introduction of Other Therapeutic Substance into Peripheral Vein, Percutaneous Approach (ICD-10-PCS; principal; 2020-01-15)
DX: O03.9 Complete or unspecified spontaneous abortion without complication (principal)
CPT/HCPCS: 36415; 76817-TC; 80053; 81003; 84702; 85025; 85027; 85610; 85730; 86850; 86900; 86901; 93005; 93010; 99285-25; J0131

== ENCOUNTER 2023-04-01 16:12 | Emergency (ER) | payer OTHER, BC ==
[2023-04-01 17:55] VITALS: BP 124/85; PULSE 104; RESP 16; TEMP 98.6; BMI 37.0
== END 2023-04-01 20:56 | disposition home or self-care (01) ==
LOC: JERFT 16:12 → JER 16:12 → JERFT 20:56
DX: N93.9 Abnormal uterine and vaginal bleeding, unspecified (principal); T19.2XXA Foreign body in vulva and vagina, initial encounter
CPT/HCPCS: 99282-25

== ENCOUNTER 2023-10-14 18:50 | Emergency (ER) | payer OTHER, BC ==
[2023-10-14 18:57] VITALS: BP 119/84; PULSE 64; RESP 18; TEMP 98; BMI 34.4
[2023-10-14] MEDS ORDERED: KETOROLAC TROMETHAMINE 30 MG/1 ML VIAL ONE (19:46)
[2023-10-14] MEDS: KETOROLAC TROMETHAMINE 30 MG/1 ML VIAL IM ONE (19:50)
== END 2023-10-14 20:50 | disposition home or self-care (01) ==
LOC: JERFT 18:50
PROC: 3E023GC Introduction of Other Therapeutic Substance into Muscle, Percutaneous Approach (ICD-10-PCS; principal; 2023-10-14)
DX: S60.512A Abrasion of left hand, initial encounter (principal); S80.02XA Contusion of left knee, initial encounter; M25.561 Pain in right knee; W01.0XXA Fall on same level from slipping, tripping and stumbling without subsequent striking against object, initial encounter
CPT/HCPCS: 73130-TC-LT-FY; 73562-TC-LT-FY; 73562-TC-RT-FY; 99284-25